=== PATIENT | male | born 1955 | race Caucasian/White ===

== ENCOUNTER 2016-10-10 00:27 | Emergency (ER) | payer SELFPAY ==
--- NOTE | 2016-10-10 02:06 | ER Document Report ---
ED General - General Mode of Arrival: Medic Information source: Patient TRAVEL OUTSIDE OF THE [place] IN LAST 30 DAYS: No - HPI Onset: Other - x3 days Onset/Duration: Persistent Quality of pain: Sharp Associated symptoms: Productive cough <ARIE CORTEZ - Last Filed: 10/10/16 02:17> <ALICIA MARIE - Last Filed: 10/10/16 03:38> - General Chief Complaint: Rib Pain Stated Complaint: RIB PAIN Notes: Patient is a 61-year-old male that presents to the emergency department today with complaints of left lateral chest wall pain. Patient states three days ago he fell and hit the left side of his chest. Patient states he has had pain since the fall however today he had a cough and he heard a pop in this area and his pain has been much worse since. Patient states he has had clear sputum with his cough which is chronic secondary to his COPD and continued smoking. Patient denies any fevers, loss of consciousness, or hitting his head during the fall. (ARIE CORTEZ) - Related Data Allergies/Adverse Reactions: iodine [Iodine] Allergy (Verified 10/08/11 08:05) Penicillins Allergy (Verified 10/08/11 08:04) Past Medical History - General Information source: Patient - Social History Smoking Status: Current Every Day Smoker Cigarette use (# per day): Yes Frequency of alcohol use: None Drug Abuse: None Lives with: Spouse/Significant other Family History: Reviewed & Not Pertinent - Past Medical History Cardiac Medical History: Reports: Hx Hypertension Pulmonary Medical History: Reports: Hx COPD Past Surgical History: Reports: Hx Bowel Surgery - colon resection - Immunizations Hx Diphtheria, Pertussis, Tetanus Vaccination: Yes <ARIE CORTEZ - Last Filed: 10/10/16 02:17> Review of Systems - Review of Systems Constitutional: denies: Fever EENT: No symptoms reported Cardiovascular: No symptoms reported Respiratory: See HPI, Cough, Other - left lateral chest wall pain Gastrointestinal: No symptoms reported Genitourinary: No symptoms reported Male Genitourinary: No symptoms reported Musculoskeletal: No symptoms reported Skin: No symptoms reported Hematologic/Lymphatic: No symptoms reported Neurological/Psychological: denies: Lost consciousness -: Yes All other systems reviewed and negative <ARIE CORTEZ - Last Filed: 10/10/16 02:17> Physical Exam - General General appearance: Appears well, Alert In distress: None - HEENT Head: Normocephalic, Atraumatic Eyes: Normal Conjunctiva: Normal - Respiratory Respiratory status: No respiratory distress Chest status: Nontender Breath sounds: Normal Chest palpation: Tender - over left lateral chest with ecchymosis - Cardiovascular Rhythm: Regular Heart sounds: Normal auscultation Murmur: No - Abdominal Inspection: Normal Distension: No distension - Extremities General upper extremity: Normal inspection, Normal ROM. No: Edema General lower extremity: Normal inspection, Normal ROM. No: Edema - Neurological Neuro grossly intact: Yes Cognition: Normal Orientation: AAOx4 Speech: Normal - Psychological Associated symptoms: Normal affect, Normal mood - Skin Skin Temperature: Warm Skin Moisture: Dry Skin Color: Normal <ARIE CORTEZ - Last Filed: 10/10/16 02:17> Course - Laboratory Result Diagrams: 10/10/16 00:45 <ARIE CORTEZ - Last Filed: 10/10/16 02:17> - Laboratory Result Diagrams: 10/10/16 00:45 - Diagnostic Test Radiology reviewed: Image reviewed - No acute findings., Reports reviewed <ALICIA MARIE - Last Filed: 10/10/16 03:38> - Re-evaluation Re-evalutation: 10/10/16 02:09 Patient presents 3 days status post blunt chest trauma from falling onto coffee table. Now complaining of increased pleuritic left lower rib pain with increased shortness of breath cough productive of clear sputum. Patient is afebrile and nontoxic appearing. He is not in respiratory distress. He does have clear breath sounds bilaterally with good air excursion. There is a area of ecchymosis left lateral lower rib cage with tenderness on palpation. We'll give a DuoNeb and check chest x-ray and treat pain with Toradol. (ALICIA MARIE ) - Vital Signs Vital signs: Temp Pulse Resp BP Pulse Ox 98.9 F 21 H 140/85 H 96 10/10/16 00:45 10/10/16 00:45 10/10/16 00:45 10/10/16 00:45 - EKG Interpretation by Me Additional EKG results interpreted by me: 10/10/16 02:11 Heart rate 94, normal sinus rhythm, normal axis, normal intervals, no ST elevations, as interpreted by me. No old for comparison. (ALICIA MARIE) Discharge <ARIE CORTEZ - Last Filed: 10/10/16 02:17> <ALICIA MARIE - Last Filed: 10/10/16 03:38> - Discharge Clinical Impression: COPD exacerbation, Pleuritic chest pain Chest wall contusion Qualifiers: Encounter type: initial encounter Laterality: left Qualified Code(s): S20.212A - Contusion of left front wall of thorax, initial encounter Condition: Stable Disposition: HOME, SELF-CARE Instructions: Rib Contusion ([facility]), Chronic Obstructive Lung Disease ([facility]) Additional Instructions: Use albuterol nebs as needed every 4-6 hours for wheezing/difficult to breathing. Take prednisone as prescribed for the next 5 days. Use incentive spirometer regularly throughout the day to encourage deep breathing. You can use Motrin and/or Tylenol for discomfort. Follow-up with your primary physician. Return for fevers, vomiting so not to keep down fluids, worsening difficulty breathing, or other worsening or concerning symptoms. Chest Wall Pain Your chest pain has been diagnosed as coming from the chest wall. This is often caused by straining the muscles or joints in the chest during physical activity, direct trauma, coughing, or vigorous vomiting. Persons with arthritis are especially prone to this type of pain, due to inflammation of the cartilage joints near the breast bone. Occasionally, no cause can be found. Rest from strenuous physical activity. This kind of chest pain is usually made worse by movement of the chest. Depending on the symptoms, we may prescribe medicine for pain, muscle relaxation, and antiinflammatory effects. If the pain is new, and seems to be due to muscle strain, cold packs can help. Otherwise, apply gentle warmth to the painful area for 15 minutes every hour or two. You should contact the doctor immediately if things change. Further evaluation is needed if you develop a fever or cough, if the nature of the pain changes, or if you become short of breath. Prescriptions: Albuterol Sulfate [Ventolin 0.083% Neb 2.5 mg/3 ml Ampul] 1 vial NEB Q4 PRN # 120 vial NS PRN Reason: For Wheezing Prednisone 50 mg PO DAILY #5 tablet Scribe Attestation: 10/10/16 03:38 I personally performed the services described in the documentation, reviewed and edited the documentation which was dictated to the scribe in my presence, and it accurately records my words and actions. (ALICIA MARIE) Scribe Documentation - Scribe Written by Scribe:: Freda Prado, 10/10/2016 0223 acting as scribe for :: Marion <ARIE CORTEZ - Last Filed: 10/10/16 02:17>
[2016-10-10] MEDS ORDERED: KETOROLAC TROMETHAMINE INJ/PF 30 MG/1 ML SDV IV ONE (02:07)
[2016-10-10] MEDS ORDERED: IPRATROPIUM/ALBUTEROL 0.5-2.5 MG/3 ML AMPUL NEB ONE (02:09)
[2016-10-10 02:13] LABS: ABSOLUTE BASOPHILS # (AUTO) 0.1 10^3/uL (0.0-0.2); ABSOLUTE EOSINOPHILS # (AUTO) 0.1 10^3/uL (0.0-0.6); ABSOLUTE LYMPHOCYTES (AUTO) 1.8 10^3/uL (0.5-4.7); ABSOLUTE MONOCYTES (AUTO) 0.8 10^3/uL (0.1-1.4); BASOPHILS % (AUTO) 1.1 % (0-2); EOSINOPHILS % (AUTO) 1.3 % (0-6); HEMATOCRIT 48.6 % (37.9-51.0); HEMOGLOBIN 16.4 g/dL (13.5-17.0); HGB HCT DIFFERENCE 0.6; LYMPHOCYTES % (AUTO) 23.1 % (13-45); MEAN CORPUSCULAR HEMOGLOBIN 31.4 pg (27.0-33.4); MEAN CORPUSCULAR HGB CONC 33.9 g/dL (32.0-36.0); MEAN CORPUSCULAR VOLUME 93 fl (80-97); MONOCYTES % (AUTO) 10.5 % (3-13); RED BLOOD COUNT 5.23 10^6/uL (4.35-5.55); WHITE BLOOD COUNT 7.8 10^3/uL (4.0-10.5)
[2016-10-10 03:45] VITALS: BP 132/85
--- NOTE | 2016-10-10 05:39 | EKG REPORT ---
SEVERITY:- NORMAL ECG - SINUS RHYTHM : Confirmed by: Geni Thacker MD 10-Oct-2016 05:39:20
== END 2016-10-10 03:30 | disposition home or self-care (01) ==
LOC: ER 00:27
DX: S20.212A Contusion of left front wall of thorax, initial encounter (principal); W19.XXXA Unspecified fall, initial encounter; J44.1 Chronic obstructive pulmonary disease with (acute) exacerbation; R07.81 Pleurodynia; R05 Cough; R06.02 Shortness of breath; I10 Essential (primary) hypertension; F17.210 Nicotine dependence, cigarettes, uncomplicated; Z88.0 Allergy status to penicillin
CPT/HCPCS: 93005; 94640; 99284; 96374; 36415; 85025; 71020; 93010; J1885; J7620

== ENCOUNTER 2016-12-19 01:17 | Observation (INO) | payer MEDICAID ==
[2016-12-19] MEDS ORDERED: NORMAL SALINE 1000 ML 1,000 ML IV ONE ×3 (01:26→04:24)
--- NOTE | 2016-12-19 01:29 | ER Document Report ---
ED General - General Chief Complaint: Syncope Stated Complaint: POSSIBLE SYNCOPE EPISODE Time Seen by Provider: 12/19/16 01:26 Notes: Patient is a 61-year-old male who presents with complaint of a syncopal episode. Patient apparently was walking to the bathroom and family heard him hit the floor. When they arrived he was not breathing and he was pale. They eventually were able to get him to sit on the toilet He then passed out again while the toilet. When paramedics arrived he was poorly responsive his blood pressure was 77/56. They said it appeared that he was in atrial flutter. Since the fall the patient has had a tremor in his right upper extremity. Patient is a chronic alcoholic. says that he has strength today. She does not suspect withdrawal she has been drinking regularly. He has had no recent fevers or infections. No other complaints at this time. He only takes Lisinopril 20mg daily. Patient received 250 mL's of normal saline in the ambulance. Blood pressure did improve with that. Patient does not remember the event. He denies any chest pain. He denies headache. TRAVEL OUTSIDE OF THE [place] IN LAST 30 DAYS: No - Related Data Allergies/Adverse Reactions: iodine [Iodine] Allergy (Verified 12/19/16 02:18) Penicillins Allergy (Verified 12/19/16 02:18) Past Medical History - Social History Smoking Status: Unknown if Ever Smoked Frequency of alcohol use: Heavy Drug Abuse: None Family History: Reviewed & Not Pertinent - Past Medical History Cardiac Medical History: Reports: Hx Hypertension Pulmonary Medical History: Reports: Hx COPD Past Surgical History: Reports: Hx Bowel Surgery - colon resection - Immunizations Hx Diphtheria, Pertussis, Tetanus Vaccination: Yes Review of Systems - Review of Systems Notes: My Normal Review Basic REVIEW OF SYSTEMS: CONSTITUTIONAL : Denies fever, chills, or sweats. Denies recent illness. EENT: Denies eye, ear, throat, or mouth pain or symptoms. Denies nasal or sinus congestion. CARDIOVASCULAR: Denies chest pain. RESPIRATORY: Denies cough, cold, or chest congestion. Denies shortness of breath, difficulty breathing, or wheezing. GASTROINTESTINAL: Denies abdominal pain. Denies nausea, vomiting, or diarrhea. Denies constipation. Last BM: GENITOURINARY: Denies difficulty urinating, painful urination, burning, frequency, or blood in urine. MUSCULOSKELETAL: Left foot pain. SKIN: Denies rash or skin lesions. NEUROLOGICAL: Syncope denies headache. Denies weakness or paralysis or loss of use of either side. Denies problems with gait or speech. Denies sensory or motor loss. Tremor and right upper extremity. ALL OTHER SYSTEMS REVIEWED AND NEGATIVE. Physical Exam - Vital signs Vitals: Resp Pulse Ox 22 H 95 12/19/16 01:24 12/19/16 01:24 - Notes Notes: General Appearance: Well nourished, alert, cooperative but somewhat confused, no acute distress, no obvious discomfort. Vitals: reviewed, See vital signs table. Head: no swelling or tenderness to the head Eyes: PERRL, EOMI, Conjuctiva clear Mouth: No decreasd moisture Throat: No tonsillar inflammation, No airway obstruction, No lymphadenopathy Neck: Supple, no neck tenderness, No thyromegaly Lungs: No wheezing, No rales, No rhonci, No accessory muscle use, good air exchange bilaterally. Heart: Normal rate, Regular rythm, No murmur, no rub Abdomen: Normal BS, soft, No rigidity, No abdominal tenderness, No guarding, no rebound, no abdominal masses, no organomegaly Extremities: strength 5/5 in all extremities, good pulses in all extremities, no swelling or tenderness in the extremities, no edema. Skin: warm, dry, appropriate color, no rash Neuro: speech clear, oriented x 2, normal affect, responds appropriately to most questions. Patient does have some amnesia and keeps asking where he is and what happened. Patient is able to move all extremities without difficulty however he does have a tremor in the right upper extremity that he has difficulty controlling. He is still able to move his right upper extremity voluntarily without problems. Cranial nerves II through XII are intact. Distal sensation is intact. Gait is not yet tested. Course - Re-evaluation Re-evalutation: 12/19/16 03:24 Patient's blood pressure was doing better and his feeling improved. Now patient 's blood pressure started to drop again. His blood pressures in the 70s systolic. We did repeat it is still in the 70s systolic. Patient himself says he is feeling better and has no complaints of pain. His laboratory evaluation is unremarkable. I do not know the exact cause of his syncopal episodes recur hypertension at this time. Being that he did have the syncope and has recurrent hypotension I will do a CTA of his chest to rule out potential etiologies of his syncope. - Vital Signs Vital signs: Temp Pulse Resp BP Pulse Ox 97.5 F 101 H 15 119/75 98 12/19/16 01:25 12/19/16 03:35 12/19/16 04:55 12/19/16 04:55 12/19/16 04:55 - Laboratory Result Diagrams: 12/19/16 01:25 12/19/16 01:25 Laboratory results interpreted by me: 12/19/16 12/19/16 12/19/16 01:25 01:25 04:13 Lymphocytes % 46.7 H Sodium 133.3 L Chloride 94 L Creatinine 1.52 H Est GFR ( Amer) 57 L Est GFR (Non-Af Amer) 47 L Urine Protein 100 H - EKG Interpretation by Me Additional EKG results interpreted by me: 12/19/16 01:28 EKG is reviewed and interpreted by me. EKG shows normal sinus rhythm with a rate of [address] segment elevation or depression. No ischemic T-wave inversions. There is a lot of artifact in lead V1 making it difficult to interpret. [place] interval, QTc intervals are within normal range. QRS duration is slightly prolonged. No old EKG available for comparison. - Transfer of Care Notes: 12/19/16 05:00 The exact cause of patient's syncope is probably recurrent hypotension. Because of the hypotension is really not clear. He does respond well to fluids. Said no fevers. He has no signs of infection on the workup. CT is negative for PE or dissection. Cardiac enzymes are negative. CT scan of his head is negative. He is not in any alcohol withdrawal. His electrolytes are normal. I see no arrhythmia on the EKG. hospitalist who agrees with the patient for continued workup of his intermittent hypotension and syncope. Dictation of this chart was performed using voice recognition software; therefore, there may be some unintended grammatical errors. Discharge - Discharge Clinical Impression: Syncope Qualifiers: Syncope type: unspecified Qualified Code(s): R55 - Syncope and collapse Hypotension Qualifiers: Hypotension type: unspecified hypotension type Qualified Code(s): I95.9 - Hypotension, unspecified Admitting Provider: Hospitalist Unit Admitted: [facility]
[2016-12-19] MEDS ORDERED: FOLIC ACID INJ 5 MG/1 ML 10 ML VIAL IV ONE (01:30)
[2016-12-19] MEDS ORDERED: LORAZEPAM INJ 2 MG/1 ML VIAL IV ONE (01:30)
[2016-12-19] MEDS ORDERED: THIAMINE HCL 100 MG in NORMAL SALINE 50 ML IV ONE (01:30)
[2016-12-19 01:46] LABS: ABSOLUTE BASOPHILS # (AUTO) 0.1 10^3/uL (0.0-0.2); ABSOLUTE EOSINOPHILS # (AUTO) 0.2 10^3/uL (0.0-0.6); ABSOLUTE LYMPHOCYTES (AUTO) 3.8 10^3/uL (0.5-4.7); ABSOLUTE MONOCYTES (AUTO) 0.6 10^3/uL (0.1-1.4); ABSOLUTE NEUT (AUTO) 3.5 10^3/uL (1.7-8.2); BASOPHILS % (AUTO) 1.2 % (0-2); EOSINOPHILS % (AUTO) 2.2 % (0-6); HEMATOCRIT 44.6 % (37.9-51.0); HEMOGLOBIN 15.2 g/dL (13.5-17.0); LYMPHOCYTES % (AUTO) 46.7 % (13-45); MEAN CORPUSCULAR HEMOGLOBIN 31.9 pg (27.0-33.4); MEAN CORPUSCULAR HGB CONC 34.1 g/dL (32.0-36.0); MEAN CORPUSCULAR VOLUME 94 fl (80-97); MONOCYTES % (AUTO) 6.9 % (3-13); RED BLOOD COUNT 4.76 10^6/uL (4.35-5.55); RED CELL DISTRIBUTION WIDTH 13.9 % (11.5-14.0); WHITE BLOOD COUNT 8.2 10^3/uL (4.0-10.5)
[2016-12-19 02:01] LABS: ALANINE AMINOTRANSFERASE 37 U/L (21-72); ALBUMIN 4.2 g/dL (3.5-5.0); ALCOHOL 219 mg/dL (NONE DETECTED); ALKALINE PHOSPHATASE 73 U/L (38-126); ANION GAP 15 (5-19); ASPARTATE AMINO TRANSFERASE 24 U/L (17-59); BILIRUBIN,DIRECT 0.4 mg/dL (0.0-0.4); BILIRUBIN,TOTAL 0.6 mg/dL (0.2-1.3); BLOOD UREA NITROGEN 12 mg/dL (7-20); CALCIUM 9.4 mg/dL (8.4-10.2); CARBON DIOXIDE 24 mmol/L (22-30); CHLORIDE 94 mmol/L (98-107); CREATINE KINASE 125 U/L (55-170); CREATININE RESULT 1.52 mg/dL (0.52-1.25); GLUCOSE 102 mg/dL (75-110); MAGNESIUM 2.3 mg/dL (1.6-2.3); PROTHROMBIN TIME 12.8 SEC (11.4-15.4); SODIUM 133.3 mmol/L (137-145); TOTAL PROTEIN 6.7 g/dL (6.3-8.2)
[2016-12-19 02:13] LABS: CREATINE KINASE MB 1.51 ng/mL (<4.55)
[2016-12-19 02:19] LABS: TROPONIN I < 0.012 ng/mL
[2016-12-19] MEDS ORDERED: THIAMINE HCL INJ 200 MG/2 ML VIAL ONE (03:00)
--- NOTE | 2016-12-19 03:10 | RADIOLOGY REPORT (SQ) ---
EXAM DESCRIPTION: CT CERVICAL SPINE WITHOUT COMPLETED DATE/TIME: 12/19/2016 2:43 am REASON FOR STUDY: trauma COMPARISON: None. TECHNIQUE: Axial images acquired through the cervical spine without intravenous contrast. Images re viewed with lung, soft tissue and bone windows. Reconstructed coronal and sagittal MPR images review ed. Images stored on PACS. All CT scanners at this facility use dose modulation, iterative reconstruction, and/or weight based d osing when appropriate to reduce radiation dose to as low as reasonably achievable (ALARA). [facility]: Dose Right [facility]: CareDose [facility]: Dose Right [facility]: Teradose 4D [facility]: [employer] RADIATION DOSE: 10.74 mGy. LIMITATIONS: None. FINDINGS: ALIGNMENT: Anatomic. MINERALIZATION: Normal. VERTEBRAL BODIES: No fractures or dislocation. DISCS: Moderate C6-C7 disc bulge -osteophyte complex and moderate spondylosis result in [id number] ate spinal canal stenosis and moderate bilateral C7 foraminal stenoses. Small C4-C5 disc bulge. Mod erate fragmented disc desiccation and osteophyte at the C1-C2 level with mild -moderate left C2 karina inal stenosis. FACETS, LATERAL MASSES, POSTERIOR ELEMENTS: No fractures. No dislocation. No acute findings. HARDWARE: None in the spine. VISUALIZED RIBS: No fractures. LUNG APICES AND SOFT TISSUES: No significant or acute findings. OTHER: Atherosclerosis. IMPRESSION: No acute findings. Moderate disc desiccation spondylosis at the C6-C7- and C1-C2 levels . TECHNICAL DOCUMENTATION: JOB ID: [id number] Quality ID # [id number]: Final reports with documentation of one or more dose reduction techniques (e.g., Au tomated exposure control, adjustment of the mA and/or kV according to patient size, use of iterative reconstruction technique) 2010 [[employer]- All Rights Reserved
--- NOTE | 2016-12-19 03:12 | RADIOLOGY REPORT (SQ) ---
EXAM DESCRIPTION: CT HEAD WITHOUT COMPLETED DATE/TIME: 12/19/2016 2:44 am REASON FOR STUDY: trauma COMPARISON: 05/15/2010. TECHNIQUE: Axial images acquired through the brain without intravenous contrast. Images reviewed wi th bone, brain and subdural windows. Images stored on PACS. All CT scanners at this facility use dose modulation, iterative reconstruction, and/or weight based d osing when appropriate to reduce radiation dose to as low as reasonably achievable (ALARA). [facility]: Dose Right [facility]: CareDose [facility]: Dose Right [facility]: Teradose 4D [facility]: [employer] RADIATION DOSE: 55.22 mGy. LIMITATIONS: None. FINDINGS: VENTRICLES: Normal size and contour. CEREBRUM: No masses. No hemorrhage. No midline shift. Normal bourgeois/white matter differentiation. N o evidence for acute infarction. Mild cerebral volume loss. CEREBELLUM: No masses. No hemorrhage. No alteration of density. No evidence for acute infarction. EXTRAAXIAL SPACES: No fluid collections. No masses. ORBITS AND GLOBE: No intra- or extraconal masses. Normal contour of globe without masses. CALVARIUM: No fracture. PARANASAL SINUSES: No fluid or mucosal thickening. SOFT TISSUES: No mass or hematoma. OTHER: No other significant finding. IMPRESSION: No acute findings. TECHNICAL DOCUMENTATION: JOB ID: [id number] Quality ID # [id number]: Final reports with documentation of one or more dose reduction techniques (e.g., Au tomated exposure control, adjustment of the mA and/or kV according to patient size, use of iterative reconstruction technique) 2010 [employer]- All Rights Reserved
--- NOTE | 2016-12-19 03:18 | RADIOLOGY REPORT (SQ) ---
EXAM DESCRIPTION: FOOT LEFT COMPLETE COMPLETED DATE/TIME: 12/19/2016 3:08 am REASON FOR STUDY: trauma COMPARISON: None. NUMBER OF VIEWS: Three views. TECHNIQUE: AP, lateral and oblique radiographic images acquired of the left foot. LIMITATIONS: None. FINDINGS: MINERALIZATION: Osteopenia. BONES: Comminuted oblique fractures of the distal diametaphysis of the left 2nd, 3rd, and 4th metatar si. small calcaneal enthesophytes. JOINTS: No effusions. SOFT TISSUES: No soft tissue swelling. No foreign body. OTHER: No other significant finding. IMPRESSION: Left 2nd, 3rd, and 4th distal metatarsal fractures. TECHNICAL DOCUMENTATION: JOB ID: [id number] 1891 [email or web address]- All Rights Reserved
--- NOTE | 2016-12-19 03:19 | RADIOLOGY REPORT (SQ) ---
EXAM DESCRIPTION: PELVIS AP COMPLETED DATE/TIME: 12/19/2016 3:08 am REASON FOR STUDY: trauma COMPARISON: None. NUMBER OF VIEWS: One view TECHNIQUE: AP Pelvis LIMITATIONS: None. FINDINGS: MINERALIZATION: Normal. HIPS: No acute fracture or dislocation. No worrisome bone lesions. PELVIS AND SACRUM: No acute fracture or dislocation. No worrisome bone lesions. PUBIS AND ISCHIUM: No acute fracture. LOWER LUMBAR SPINE: Moderate disc desiccation. Mild right sacroiliac osteoarthritis. SOFT TISSUES: No findings. OTHER: No other significant finding. IMPRESSION: No acute defect. TECHNICAL DOCUMENTATION: JOB ID: [id number] [employer]- All Rights Reserved
--- NOTE | 2016-12-19 03:22 | RADIOLOGY REPORT (SQ) ---
EXAM DESCRIPTION: ANKLE LEFT COMPLETE COMPLETED DATE/TIME: 12/19/2016 3:08 am REASON FOR STUDY: trauma COMPARISON: CR, left foot, concurrent. NUMBER OF VIEWS: Three views. TECHNIQUE: AP, lateral, and oblique radiographic images acquired of the left ankle. LIMITATIONS: None. FINDINGS: MINERALIZATION: Osteopenia. BONES: Left 2nd, 3rd, and 4th metatarsal fractures described in a separate report for the left foot. Moderate deformity of the left distal tibial shaft consistent with old injury. Small osteophyte of the medial malleolus. Small enthesophytes of the calcaneus. JOINTS: No effusions. SOFT TISSUES: No soft tissue swelling. No foreign body. OTHER: No other significant finding. IMPRESSION: Left 2nd, 3rd, and 4th metatarsal fractures. No acute defect of the left ankle. TECHNICAL DOCUMENTATION: JOB ID: [id number] [employer]- All Rights Reserved
--- NOTE | 2016-12-19 03:25 | RADIOLOGY REPORT (SQ) ---
EXAM DESCRIPTION: CHEST SINGLE VIEW COMPLETED DATE/TIME: 12/19/2016 3:08 am REASON FOR STUDY: syncope COMPARISON: None. EXAM PARAMETERS: NUMBER OF VIEWS: One view. TECHNIQUE: Single frontal radiographic view of the chest acquired. RADIATION DOSE: NA LIMITATIONS: Arm positioning artifact overlies the right lower hemithorax. FINDINGS: LUNGS AND PLEURA: No opacities, masses or pneumothorax. No pleural effusion. MEDIASTINUM AND HILAR STRUCTURES: No masses. Contour normal. HEART AND VASCULAR STRUCTURES: Heart normal in size. Normal vasculature. BONES: No acute findings. HARDWARE: None in the chest. OTHER: No other significant finding. IMPRESSION: NO ACUTE RADIOGRAPHIC FINDING IN THE CHEST. Limitation. TECHNICAL DOCUMENTATION: JOB ID: [id number]
--- NOTE | 2016-12-19 04:38 | RADIOLOGY REPORT (SQ) ---
EXAM DESCRIPTION: CTA CHEST COMPLETED DATE/TIME: 12/19/2016 4:15 am REASON FOR STUDY: syncope, hypotension COMPARISON: None. TECHNIQUE: CT scan of the chest performed using helical scanning technique with dynamic intravenous contrast injection. Images reviewed with lung, soft tissue and bone windows. Reconstructed coronal and sagittal MPR images reviewed. Additional 3 dimensional post-processing performed to develop Maximal Intensity Projection images (AR P). All images stored on PACS. All CT scanners at this facility use dose modulation, iterative reconstruction, and/or weight based d osing when appropriate to reduce radiation dose to as low as reasonably achievable (ALARA). [facility]: Dose Right [facility]: CareDose [facility]: Dose Right [facility]: Teradose 4D [facility]: [employer] CONTRAST TYPE AND DOSE: 100 mL Isovue 370- low osmolar. RENAL FUNCTION: Creatinine 1.5 RADIATION DOSE: 17.34 mGy. LIMITATIONS: None. FINDINGS: LUNGS AND PLEURA: No masses, infiltrates, pneumothorax. No pleural effusions, calcificati ons. AORTA AND GREAT VESSELS: No aneurysm or dissection. HEART: No pericardial effusion. PULMONARY ARTERIES: No emboli visualized in the main pulmonary arteries or the segmental branches. HILAR AND MEDIASTINAL STRUCTURES: No identified masses or abnormal nodes. HARDWARE: None in the chest. UPPER ABDOMEN: Mild bilateral perinephric fat stranding. Mild hepatic steatosis. Limited exam. THYROID AND OTHER SOFT TISSUES: No masses. No adenopathy. BONES: Chronic deformity of multiple left posterior ribs from the 2nd to 7th levels likely due to old injury. 3D MIPS: Confirm above findings. OTHER: No other significant finding. IMPRESSION: No acute cardiopulmonary findings. NO PULMONARY EMBOLI. TECHNICAL DOCUMENTATION: JOB ID: [id number] Quality ID # [id number]: Final reports with documentation of one or more dose reduction techniques (e.g., Au tomated exposure control, adjustment of the mA and/or kV according to patient size, use of iterative reconstruction technique) 2010 [employer]- All Rights Reserved
[2016-12-19 04:52] LABS: APPEARANCE,URINE SLIGHTLY-CLOUDY; BILIRUBIN,URINE NEGATIVE (NEGATIVE); GLUCOSE, URINE NEGATIVE (NEGATIVE); KETONES,URINE NEGATIVE (NEGATIVE); LEUKOCYTE ESTERASE,URINE NEGATIVE (NEGATIVE); NITRITE,URINE NEGATIVE (NEGATIVE); PROTEIN,URINE 100 mg/dL (NEGATIVE); URINE BARBITURATES SCREEN NEGATIVE; URINE METHADONE SCREEN NEGATIVE; URINE OPIATES LOW UNCONFIRMED POSITIVE; URINE PHENCYCLIDINE SCREEN NEGATIVE; URINE SPECIFIC GRAVITY 1.011; UROBILINOGEN,URINE NEGATIVE mg/dL (<2.0)
[2016-12-19] MEDS ORDERED: NALOXONE HCL INJ/PF 0.4 MG/1 ML SDV IV ONE (05:00)
[2016-12-19] MEDS ORDERED: ACETAMINOPHEN 325 MG TABLET PO PRN (06:29)
[2016-12-19] MEDS ORDERED: LORAZEPAM INJ 2 MG/1 ML VIAL IV PRN (06:29)
[2016-12-19] MEDS ORDERED: KETOROLAC TROMETHAMINE INJ/PF 30 MG/1 ML SDV IV PRN (06:29)
[2016-12-19] MEDS ORDERED: IPRATROPIUM/ALBUTEROL 0.5-2.5 MG/3 ML AMPUL NEB PRN (06:29)
[2016-12-19] MEDS ORDERED: NORMAL SALINE 1000 ML 1,000 ML IV SCH (06:30)
--- NOTE | 2016-12-19 06:50 | PDOC H&P ---
History of Present Illness Admission Date/PCP: 12/19/16 05:04 Patient complains of: Fall and left foot pain History of Present Illness: YOSSI RASMUSSEN is a 61 year old male with a past medical history of hypertension, tobacco and alcohol abuse who had been in his usual state of health until approximately 2 hours prior to presentation. Patient had had a unremarkable day consuming approximately a case of beer 5 or 6 shots of alcohol, marijuana and Percocet and went to bed however on attempt to use the bathroom he fell resulting in injury to his left foot. he was helped to a chair by his where he briefly lost consciousness and fell to the floor prompting evaluation in the emergency room where he was found intoxicated with hypotension and closed fracture to the left foot and referred to the hospitalist for admission. Patient is verbally abusive to his and hospital staff. Unwilling to provide history which is provided by his outside his room. Patient denies suicidal ideation. He is unwilling to quantify his alcohol intake. His admits previous history of syncope remotely associated with with alcohol use. Past Medical History Cardiac Medical History: Reports: Hypertension Pulmonary Medical History: Reports: Chronic Obstructive Pulmonary Disease (COPD) Psychiatric Medical History: Reports: Alcohol Dependency, Tobacco Dependency, Other - Cannabis and Percocet abuse Social History Information Source: Patient, Relative, Emergency Med Personnel, [facility], [facility] Records Lives with: Family Smoking Status: Unknown if Ever Smoked Frequency of Alcohol Use: Heavy Amount of Alcoholic Beverages Per Day: 24+ Hx Recreational Drug Use: Yes Drugs: Marijuana Hx Prescription Drug Abuse: Yes - Percocet - Advance Directive Resuscitation Status: Full Code Family History Family History: Hypertension. denies: Malignancy Parental Family History Reviewed: Yes Children Family History Reviewed: Yes Sibling(s) Family History Reviewed.: Yes Medication/Allergy Home Medications: Lisinopril 30 mg PO DAILY 10/08/11 Albuterol Sulfate [Ventolin 0.083% Neb 2.5 mg/3 ml Ampul] 1 vial NEB Q4 PRN # 120 vial NS 10/10/16 Prednisone 50 mg PO DAILY #5 tablet 10/10/16 Allergies/Adverse Reactions: iodine [Iodine] Allergy (Verified 12/19/16 02:18) Penicillins Allergy (Verified 12/19/16 02:18) Review of Systems Constitutional: ABSENT: chills, fever(s), headache(s), weight gain, weight loss Eyes: ABSENT: visual disturbances Ears: ABSENT: hearing changes Cardiovascular: ABSENT: chest pain, dyspnea on exertion, edema, orthropnea, palpitations Respiratory: ABSENT: cough, hemoptysis Gastrointestinal: ABSENT: abdominal pain, constipation, diarrhea, hematemesis, hematochezia, nausea, vomiting Genitourinary: ABSENT: dysuria, hematuria Musculoskeletal: ABSENT: joint swelling Integumentary: ABSENT: rash, wounds Neurological: ABSENT: abnormal gait, abnormal speech, confusion, dizziness, focal weakness, syncope Psychiatric: ABSENT: anxiety, depression, homidical ideation, suicidal ideation Endocrine: ABSENT: cold intolerance, heat intolerance, polydipsia, polyuria Hematologic/Lymphatic: ABSENT: easy bleeding, easy bruising Physical Exam Vital Signs: Temp Pulse Resp BP Pulse Ox 98.5 F 102 H 16 107/75 94 12/19/16 06:00 12/19/16 06:00 12/19/16 06:01 12/19/16 06:01 12/19/16 06:01 General appearance: PRESENT: no acute distress, well-developed, well-nourished. ABSENT: cooperative Head exam: PRESENT: atraumatic, normocephalic Eye exam: PRESENT: conjunctiva pink, EOMI, PERRLA. ABSENT: scleral icterus Ear exam: PRESENT: normal external ear exam Mouth exam: PRESENT: moist, tongue midline Neck exam: ABSENT: carotid bruit, JVD, lymphadenopathy, thyromegaly Respiratory exam: PRESENT: clear to auscultation emelina. ABSENT: rales, rhonchi, wheezes Cardiovascular exam: PRESENT: RRR. ABSENT: diastolic murmur, rubs, systolic murmur Pulses: PRESENT: normal dorsalis pedis pul Vascular exam: PRESENT: normal capillary refill GI/Abdominal exam: PRESENT: normal bowel sounds, soft. ABSENT: distended, guarding, mass, organolmegaly, rebound, tenderness Rectal exam: PRESENT: deferred Extremities exam: PRESENT: full ROM, tenderness - Left foot immobilized and splinted. ABSENT: calf tenderness, clubbing, pedal edema Neurological exam: PRESENT: alert, awake, oriented to person, oriented to place , oriented to time, oriented to situation, CN II-XII grossly intact. ABSENT: motor sensory deficit Psychiatric exam: PRESENT: appropriate affect, normal mood. ABSENT: homicidal ideation, suicidal ideation Skin exam: PRESENT: dry, intact, warm. ABSENT: cyanosis, rash Results Impressions: Ankle X-Ray 12/19/16 01:27 IMPRESSION: Left 2nd, 3rd, and 4th metatarsal fractures. No acute defect of the left ankle. Cervical Spine CT 12/19/16 01:27 IMPRESSION: No acute findings. Moderate disc desiccation spondylosis at the C6 -C7- and C1-C2 levels. Foot X-Ray 12/19/16 01:27 IMPRESSION: Left 2nd, 3rd, and 4th distal metatarsal fractures. Head CT 12/19/16 01:27 IMPRESSION: No acute findings. Pelvis X-Ray 12/19/16 01:27 IMPRESSION: No acute defect. Chest X-Ray 12/19/16 02:49 IMPRESSION: NO ACUTE RADIOGRAPHIC FINDING IN THE CHEST. Limitation. Chest/Abdomen CTA 12/19/16 03:19 IMPRESSION: No acute cardiopulmonary findings. NO PULMONARY EMBOLI. Assessment & Plan - Diagnosis (1) Hypotension Qualifiers: Hypotension type: unspecified hypotension type Qualified Code(s): I95.9 - Hypotension, unspecified Is this a current diagnosis for this admission?: YesPlan: Likely secondary to polysubstance abuse and intoxication. He will receive an IV fluid challenge, a trial of Narcan and orthostatic blood pressures. (2) Intoxication Is this a current diagnosis for this admission?: YesPlan: Supportive care with nonnarcotic symptom management (3) Polysubstance abuse Is this a current diagnosis for this admission?: YesPlan: Avoidance of opiates consider referral to outpatient rehab (4) Alcohol abuse Is this a current diagnosis for this admission?: YesPlan: Thiamine, folate, as needed Ativan consider referral to outpatient rehab. - Time Time Spent: 30 to 50 Minutes - Inpatient Certification Medical Necessity: Need Close Monitoring Due to Risk of Patient Decompensation
[2016-12-19] MEDS ORDERED: THIAMINE HCL 100 MG, FOLIC ACID 1 MG in NORMAL SALINE 50 ML IV SCH (10:00)
[2016-12-19] MEDS ORDERED: DOCUSATE SODIUM 100 MG CAPSULE PO SCH (10:00)
[2016-12-19] MEDS ORDERED: PREDNISONE 20 MG TABLET PO ONE (10:34)
[2016-12-19] MEDS: MAGNESIUM SULFATE/D5W 100 ML IV SCH ×2 (11:33→12:44)
[2016-12-19 13:03] LABS: ANION GAP 9 (5-19); BLOOD UREA NITROGEN 9 mg/dL (7-20); CALCIUM 8.6 mg/dL (8.4-10.2); CARBON DIOXIDE 20 mmol/L (22-30); CHLORIDE 102 mmol/L (98-107); CREATININE RESULT 0.94 mg/dL (0.52-1.25); GLUCOSE 98 mg/dL (75-110); POTASSIUM 4.8 mmol/L (3.6-5.0)
[2016-12-19] MEDS ORDERED: DIAZEPAM 5 MG TABLET PO ONE (13:30)
[2016-12-19] MEDS ORDERED: HEPARIN SOD (PORCINE) 5,000 UNIT/ML 1 ML SYRINGE SUBCUT SCH (14:00)
[2016-12-19 17:08] VITALS: BP 112/58
--- NOTE | 2016-12-19 20:40 | EKG REPORT ---
SEVERITY:- ABNORMAL ECG - SINUS RHYTHM BORDERLINE R WAVE PROGRESSION, ANTERIOR LEADS BORDERLINE T ABNORMALITIES, LAT LEADS : Confirmed by: Jai Garner MD 19-Dec-2016 20:39:26
--- NOTE | 2016-12-19 20:59 | PDOC DISCHARGE SUMMARY ---
General - Admit/Disc Date/PCP Admission Date/Primary Care Provider: 12/19/16 05:04 Discharge Date: 12/19/16 - Discharge Diagnosis (1) COPD exacerbation Is this a current diagnosis for this admission?: Yes (2) Fracture of metatarsal of left foot, closed Is this a current diagnosis for this admission?: Yes (3) Alcohol abuse Is this a current diagnosis for this admission?: Yes (4) Hypotension Is this a current diagnosis for this admission?: Yes (5) Polysubstance abuse Is this a current diagnosis for this admission?: Yes (6) Syncope Is this a current diagnosis for this admission?: Yes (7) Tobacco abuse Is this a current diagnosis for this admission?: Yes (8) Acute renal failure Is this a current diagnosis for this admission?: Yes - Additional Information Resuscitation Status: Full Code Discharge Diet: Cardiac Discharge Activity: Activity As Tolerated, Balance Activity w/Rest, Keep Legs Elevated Home Medications: Albuterol Sulfate [Ventolin Hfa] 1 - 2 puff IH Q4 PRN #1 hfa.aer.[id number] 12/19/16 Folic Acid [Folvite 1 mg Tablet] 1 mg PO DAILY #30 tablet 12/19/16 Lisinopril [Prinivil] 20 mg PO DAILY 12/19/16 Prednisone [Deltasone 20 mg Tablet] 20 mg PO DAILY #18 tablet 12/19/16 Thiamine HCl [Thiamine 100 mg Tablet] 100 mg PO DAILY #30 tablet 12/19/16 Tramadol HCl [Ultram 50 mg Tablet] 50 mg PO Q6HP PRN #20 tablet 12/19/16 History of Present Illness History of Present Illness: YOSSI RASMUSSEN is a 61 year old male with a past medical history of hypertension, tobacco and alcohol abuse who had been in his usual state of health until approximately 2 hours prior to presentation. Patient had had a unremarkable day consuming approximately a case of beer 5 or 6 shots of alcohol, marijuana and Percocet and went to bed however on attempt to use the bathroom he fell resulting in injury to his left foot. he was helped to a chair by his where he briefly lost consciousness and fell to the floor prompting evaluation in the emergency room where he was found intoxicated with hypotension and closed fracture to the left foot and referred to the hospitalist for admission. Patient is verbally abusive to his and hospital staff. Unwilling to provide history which is provided by his outside his room. Patient denies suicidal ideation. He is unwilling to quantify his alcohol intake. His admits previous history of syncope remotely associated with with alcohol use. Hospital Course Hospital Course: Patient was placed on observation and CTA was performed which was negative. Patient was found to have metatarsal fracture after his fall and this was splinted in the emergency department. Patient admitted to taking opiates and his hypotension improved with the administration of Narcan. Patient was also given IV fluids. Patient was found to have mild COPD exacerbation with slight wheezing and given oral prednisone. Cardiac enzymes were negative. Upon seeing patient he did request discharge. Patient most likely had syncopal episode due to polysubstance abuse and mild dehydration. Patient was advised to refrain from taking medications that were not prescribed to him, to stop smoking, to avoid alcohol, and follow with his primary care doctor. Patient is advised also to follow with orthopedic surgery. Appointment was made for him prior to discharge. Physical Exam Vital Signs: Temp Pulse Resp BP Pulse Ox 97.8 F 92 17 112/58 L 98 12/19/16 17:04 12/19/16 17:04 12/19/16 17:04 12/19/16 17:04 12/19/16 17:04 Exam: General: Awake alert and oriented x3, no acute respiratory distress HEENT: oropharynx is moist, pink, no scleral icterus, no conjunctival injection Neck: No JVD, trachea midline Chest: White end expiratory wheezes CV: Regular rate and rhythm, normal S1 and S2, no M/R/G Abdomen: Soft, nontender to palpation, nondistended, active bowel sounds; no rebound, rigidity, or guarding Extremities: No cyanosis, clubbing or edema; right leg in splint Neuro: Cranial nerves II through XII are grossly intact without focal deficits Psych: Normal mood and affect Results Laboratory Results: 12/19/16 11:37 12/19/16 12/19/16 06:44 11:37 Sodium 131.0 L Potassium 4.8 Chloride 102 Carbon Dioxide 20 L Anion Gap 9 BUN 9 Creatinine 0.94 Est GFR ( Amer) > 60 Est GFR (Non-Af Amer) > 60 Glucose 98 Calcium 8.6 Magnesium 1.8 Impressions: Ankle X-Ray 12/19/16 01:27 IMPRESSION: Left 2nd, 3rd, and 4th metatarsal fractures. No acute defect of the left ankle. Cervical Spine CT 12/19/16 01:27 IMPRESSION: No acute findings. Moderate disc desiccation spondylosis at the C6 -C7- and C1-C2 levels. Foot X-Ray 12/19/16 01:27 IMPRESSION: Left 2nd, 3rd, and 4th distal metatarsal fractures. Head CT 12/19/16 01:27 IMPRESSION: No acute findings. Pelvis X-Ray 12/19/16 01:27 IMPRESSION: No acute defect. Chest X-Ray 12/19/16 02:49 IMPRESSION: NO ACUTE RADIOGRAPHIC FINDING IN THE CHEST. Limitation. Chest/Abdomen CTA 12/19/16 03:19 IMPRESSION: No acute cardiopulmonary findings. NO PULMONARY EMBOLI. Qualifiers PATEINT BEING DISCHARGED WITH ANY OF THE FOLLOWING DIAGNOSIS?: No Plan Time Spent: Less than 30 Minutes
== END 2016-12-19 17:58 | disposition home or self-care (01) ==
LOC: ER 01:17 → EH 05:04 → INTOOBSV 05:04 → 4N 07:20
PROVIDERS: ADMIT Internal Medicine; ATTEND Internal Medicine
PROC: 3E0F7GC Introduction of Other Therapeutic Substance into Respiratory Tract, Via Natural or Artificial Opening (ICD-10-PCS; principal; 2016-12-19)
PROC: 2W3RX1Z Immobilization of Left Lower Leg using Splint (ICD-10-PCS; 2016-12-19)
DX: I95.9 Hypotension, unspecified (principal); R55 Syncope and collapse; S92.322A Displaced fracture of second metatarsal bone, left foot, initial encounter for closed fracture; S92.332A Displaced fracture of third metatarsal bone, left foot, initial encounter for closed fracture; S92.342A Displaced fracture of fourth metatarsal bone, left foot, initial encounter for closed fracture; W19.XXXA Unspecified fall, initial encounter; Y92.002 Bathroom of unspecified non-institutional (private) residence as the place of occurrence of the external cause; F10.229 Alcohol dependence with intoxication, unspecified; J44.1 Chronic obstructive pulmonary disease with (acute) exacerbation; F12.10 Cannabis abuse, uncomplicated; F11.10 Opioid abuse, uncomplicated; N17.9 Acute kidney failure, unspecified; I10 Essential (primary) hypertension; G25.2 Other specified forms of tremor; R41.3 Other amnesia; F17.200 Nicotine dependence, unspecified, uncomplicated; Z79.899 Other long term (current) drug therapy; Z90.49 Acquired absence of other specified parts of digestive tract; Z82.49 Family history of ischemic heart disease and other diseases of the circulatory system; Z79.52 Long term (current) use of systemic steroids
CPT/HCPCS: 93005; 99285; 96361; 96374; 96375; 36415; 82553; 80307 ×2; 82550; 83735; 85025; 85610; 80048; 80053; 81001; 84484; 73610; 71010; 73630; 72170; 70450; 71275; 72125; 93010; 94640; 29515; G0378 ×2; J3490; J2310; J2060; J3475; J7512; J3411; J7030; J7620

== ENCOUNTER 2017-11-19 15:33 | Emergency (ER) | payer MEDICAID ==
[2017-11-19] MEDS ORDERED: ACETAMINOPHEN 325 MG TABLET PO ONE (15:57)
--- NOTE | 2017-11-19 15:59 | ER Document Report ---
ED Medical Screen (RME) - General Chief Complaint: Back Pain Stated Complaint: BACK PAIN Time Seen by Provider: 11/19/17 15:56 Notes: RAPID MEDICAL EVALUATION DISCLOSURE I have seen this patient as part of a Rapid Medical Evaluation and, if applicable, placed any initially appropriate orders. The patient will be seen and fully evaluated, including a full history and physical exam, by a provider ( in Main ED or Fast Track) when a room becomes available. 62-year-old male PMH chronic back pain here with complaints of lower back pain that acutely flared up this morning when he stood up from the couch. He has pain that is worse with movement. Pain is improved with minimizing movement. He has not taken any pain medicine for the symptoms however he has medicated himself with 3 shots and other types of alcohol. He has chronic numbness and tingling in his legs and is unchanged at this time. The patient is belligerent and appears intoxicated and I am unable to obtain an accurate history or review of systems from him for this reason. TRAVEL OUTSIDE OF THE [place] IN LAST 30 DAYS: No - Related Data Allergies/Adverse Reactions: iodine [Iodine] Allergy (Verified 12/19/16 02:18) Penicillins Allergy (Verified 12/19/16 02:18) Past Medical History - Social History Frequency of alcohol use: Heavy - Past Medical History Cardiac Medical History: Reports: Hx Hypertension Pulmonary Medical History: Reports: Hx COPD Renal/ Medical History: Denies: Hx Peritoneal Dialysis Past Surgical History: Reports: Hx Bowel Surgery - colon resection - Immunizations Hx Diphtheria, Pertussis, Tetanus Vaccination: Yes Physical Exam - Vital signs Vitals: Temp Pulse Resp BP Pulse Ox 98.3 F 82 20 116/76 98 11/19/17 15:36 11/19/17 15:36 11/19/17 15:36 11/19/17 15:36 11/19/17 15:36 Course - Vital Signs Vital signs: Temp Pulse Resp BP Pulse Ox 98.3 F 82 20 116/76 98 11/19/17 15:36 11/19/17 15:36 11/19/17 15:36 11/19/17 15:36 11/19/17 15:36
[2017-11-19] MEDS ORDERED: DEXAMETHASONE SOD PHOS INJ 10 MG/1 ML VIAL IV ONE (16:37)
--- NOTE | 2017-11-19 16:43 | RADIOLOGY REPORT (SQ) ---
EXAM DESCRIPTION: L SPINE WHOLE COMPLETED DATE/TIME: 11/19/2017 4:30 pm REASON FOR STUDY: back pain; eval fx COMPARISON: None. NUMBER OF VIEWS: Five views including obliques. TECHNIQUE: AP, lateral, oblique, and sacral radiographic images acquired of the lumbar spine. LIMITATIONS: None. FINDINGS: MINERALIZATION: Normal. SEGMENTATION: Normal. No transitional anatomy. ALIGNMENT: Normal. VERTEBRAE: Maintained height. No fracture or worrisome bone lesion. DISCS: Multilevel disc space narrowing with osteophytes. POSTERIOR ELEMENTS: Pedicles and facets are intact. No pars defect or posterior arch defects. Facet arthropathy is present. HARDWARE: None in the spine. PARASPINAL SOFT TISSUES: Normal. PELVIS: Intact as visualized. No fractures or worrisome bone lesions. SI joints intact. OTHER: No other significant finding. IMPRESSION: SPONDYLOSIS WITHOUT BONE LESION OR FRACTURE. TECHNICAL DOCUMENTATION: JOB ID: [id number] [employer]- All Rights Reserved Reading location - IP/workstation name: [email or web address]
[2017-11-19 17:09] LABS: ABSOLUTE BASOPHILS # (AUTO) 0.1 10^3/uL (0.0-0.2); ABSOLUTE EOSINOPHILS # (AUTO) 0.1 10^3/uL (0.0-0.6); ABSOLUTE LYMPHOCYTES (AUTO) 3.1 10^3/uL (0.5-4.7); ABSOLUTE MONOCYTES (AUTO) 0.4 10^3/uL (0.1-1.4); ABSOLUTE NEUT (AUTO) 3.1 10^3/uL (1.7-8.2); BASOPHILS % (AUTO) 1.3 % (0-2); HEMATOCRIT 45.2 % (37.9-51.0); HEMOGLOBIN 15.7 g/dL (13.5-17.0); MEAN CORPUSCULAR HEMOGLOBIN 31.9 pg (27.0-33.4); MEAN CORPUSCULAR HGB CONC 34.6 g/dL (32.0-36.0); MEAN CORPUSCULAR VOLUME 92 fl (80-97); MONOCYTES % (AUTO) 6.4 % (3-13); PLATELET COUNT 252 10^3/uL (150-450); RED BLOOD COUNT 4.91 10^6/uL (4.35-5.55); RED CELL DISTRIBUTION WIDTH 13.4 % (11.5-14.0); SEGMENTED NEUTROPHILS % (AUTO) 45.3 % (42-78); TOTAL CELLS COUNTED % (AUTO) 100 %; WHITE BLOOD COUNT 6.9 10^3/uL (4.0-10.5)
[2017-11-19 17:26] LABS: ALANINE AMINOTRANSFERASE 42 U/L (21-72); ALBUMIN 4.4 g/dL (3.5-5.0); ALKALINE PHOSPHATASE 86 U/L (38-126); ANION GAP 15 (5-19); ASPARTATE AMINO TRANSFERASE 31 U/L (17-59); BILIRUBIN,DIRECT 0.2 mg/dL (0.0-0.4); BILIRUBIN,TOTAL 0.2 mg/dL (0.2-1.3); BLOOD UREA NITROGEN 18 mg/dL (7-20); CARBON DIOXIDE 26 mmol/L (22-30); CHLORIDE 101 mmol/L (98-107); GLUCOSE 98 mg/dL (75-110); POTASSIUM 4.9 mmol/L (3.6-5.0); SODIUM 141.8 mmol/L (137-145); TOTAL PROTEIN 6.8 g/dL (6.3-8.2)
[2017-11-19 17:36] LABS: ALCOHOL 334 mg/dL (NONE DETECTED)
--- NOTE | 2017-11-19 19:40 | RADIOLOGY REPORT (SQ) ---
EXAM DESCRIPTION: MRI LUMBAR SPINE WITHOUT COMPLETED DATE/TIME: 11/19/2017 7:13 pm REASON FOR STUDY: low back pain, rad down right leg COMPARISON: None. TECHNIQUE: Sagittal and Axial imaging includes T1, T2, STIR and gradient echo sequences. Coronal T2/ HASTE imaging. LIMITATIONS: None. FINDINGS: No evidence for fracture. No focal disc protrusion or high-grade stenosis. Moderate dege nerative disc disease at the L5-S1 level with approximately 50% disc height loss and mild -moderate n eural foraminal narrowing on the right and mild on the left. Mild disc desiccation at the L4-5 level . Mild-moderate facet arthrosis at the L3 through S1 levels. Conus medullaris is normally located a t the L1 level. , visualize spinal cord shows normal signal. Bone marrow signal is within normal li mits with small hemangiomas noted at. No epidural fluid collection. Retroperitoneum is unremarkable . OTHER: No other significant findings. IMPRESSION: No evidence for fracture. No focal disc protrusion or high-grade stenosis. TECHNICAL DOCUMENTATION: JOB ID: [id number] 2010 [employer]- All Rights Reserved Reading location - IP/workstation name: [email or web address]
--- NOTE | 2017-11-19 19:50 | ER Document Report ---
ED General - General Chief Complaint: Back Pain Stated Complaint: BACK PAIN Time Seen by Provider: 11/19/17 15:56 Mode of Arrival: Medic Information source: Patient Notes: This is a 62-year-old man with a history of chronic back pain and alcohol abuse who presents to the emergency room after his back gave out of him. Patient states he was getting up out of the chair and suffered acute low back pain and actually fell to the floor. He denies any urinary retention. He denies any urinary incontinence. His surgical history includes multiple rectal surgeries for cysts and has chronic pain to the rectal area. TRAVEL OUTSIDE OF THE [place] IN LAST 30 DAYS: No - HPI Onset: Just prior to arrival Onset/Duration: Sudden Quality of pain: Dull Severity: Moderate Pain Level: 3 Associated symptoms: denies: Chest pain, Fever, Shortness of breath Exacerbated by: Movement Relieved by: Remaining still Similar symptoms previously: Yes Recently seen / treated by doctor: No - Related Data Allergies/Adverse Reactions: iodine [Iodine] Allergy (Verified 12/19/16 02:18) Penicillins Allergy (Verified 12/19/16 02:18) Past Medical History - General Information source: Patient - Social History Smoking Status: Unknown if Ever Smoked Cigarette use (# per day): Yes - 1 pack per day Chew tobacco use (# tins/day): No Smoking Education Provided: No Frequency of alcohol use: Heavy Drug Abuse: None Lives with: Spouse/Significant other Family History: Hypertension. denies: Malignancy Patient has suicidal ideation: No Patient has homicidal ideation: No - Past Medical History Cardiac Medical History: Reports: Hx Hypertension Pulmonary Medical History: Reports: Hx COPD Renal/ Medical History: Denies: Hx Peritoneal Dialysis Past Surgical History: Reports: Hx Bowel Surgery - colon resection - Immunizations Hx Diphtheria, Pertussis, Tetanus Vaccination: Yes Review of Systems - Review of Systems Constitutional: denies: Chills, Fever EENT: No symptoms reported Cardiovascular: No symptoms reported Respiratory: No symptoms reported Gastrointestinal: No symptoms reported Genitourinary: No symptoms reported Male Genitourinary: No symptoms reported Musculoskeletal: See HPI Skin: No symptoms reported Hematologic/Lymphatic: See HPI Neurological/Psychological: No symptoms reported Physical Exam - Vital signs Vitals: Temp Pulse Resp BP Pulse Ox 98.3 F 82 20 116/76 98 11/19/17 15:36 11/19/17 15:36 11/19/17 15:36 11/19/17 15:36 11/19/17 15:36 Notes: Physical exam: GENERAL: 62-year-old man, complaining of low back pain, alcohol on breath HEAD: Atraumatic, normocephalic. EYES: Pupils equal round and reactive to light, extraocular movements intact, sclera anicteric, conjunctiva are normal. ENT: TMs normal, nares patent, oropharynx clear without exudates. Moist mucous membranes. NECK: Normal range of motion, supple without obvious mass or JVD. LUNGS: Breath sounds clear to auscultation bilaterally and equal. No wheezes rales or rhonchi. HEART: Regular rate and rhythm without murmurs, rubs or gallops. ABDOMEN: Soft, normoactive bowel sounds. No tenderness to palpation. No guarding, no rebound. No masses appreciated. Back: Patient has tenderness to the lower lumbar area. No changes over the skin. Rectal: Patient does have perirectal sensation. He does have tenderness to the area which is chronic given his history of multiple surgeries. He does have rectal tone. Inner thighs: He does have sensation to the saddle area EXTREMITIES: Normal range of motion, no pitting or edema. No clubbing or cyanosis. NEUROLOGICAL: Cranial nerves II through XII grossly intact. Normal speech, moving all extremities. PSYCH: Normal mood, normal affect. SKIN: Warm, Dry, normal turgor, no rashes or lesions noted. Course - Re-evaluation Re-evalutation: 11/19/17 19:53 Note: I am hesitant to give this patient narcotics or Neurontin given his alcohol abuse. I did start some steroids and will give him a short course of steroids. I will refer him to a pain clinic - Vital Signs Vital signs: Temp Pulse Resp BP Pulse Ox 98.3 F 114 H 16 139/91 H 95 11/19/17 15:36 11/19/17 19:57 11/19/17 19:57 11/19/17 19:57 11/19/17 19:57 - Laboratory Result Diagrams: 11/19/17 16:55 11/19/17 16:55 Laboratory results interpreted by me: 11/19/17 16:55 Est GFR (Non-Af Amer) 59 L Serum Alcohol 334 H* - Diagnostic Test Radiology reviewed: Image reviewed, Reports reviewed - Lumbar MRI shows significant arthritis to the lower back without any cord impingement. Discharge - Discharge Clinical Impression: Acute on chronic back pain Condition: Stable Disposition: HOME, SELF-CARE Additional Instructions: As we discussed, the MRI showed a lot of arthritis but did not show any cord impingement necessitating surgery. At this point, the best method for treatment would be going to a pain clinic. I put the number of the pain clinic affiliated with this hospital. I also wrote for pain medicine to go home: Take the Medrol Dosepak as prescribed Please decrease the alcohol intake while taking this medicine (a combination can irritate your stomach). Follow-up also with a primary care doctor. Thank you [facility] choosing [facility] care. The examination and treatment you have received in the Emergency Department today has been rendered on an emergency basis only and is not intended to be a substitute for complete medical care. You should contact your doctor as it is important that she/he examine you for any new or remaining problems. If given a copy of any lab tests or radiology reports, please bring them with you when you see your physician. Primary Care Doctor's affiliated with [facility]: Dr. Soto Bang [address], [place] [address] [phone] Dr Zayas Address: [address] [place] [address] [place] [address] Dr Hopkins Address: [address] [place] [address] , [place] [address] If you don't have insurance: follow-up at the [facility] which is a free clinic. [address], [place] [address] [phone] Prescriptions: Methylprednisolone [Medrol 4 mg Dosepack 21 Tab/Pack] 4 mg PO ASDIR PRN #21 tab.[id number].[email or web address] PRN Reason: Referrals: JORDAN ELLIOTT MD [Primary Care Provider] - Follow up as needed DANITZA NELSON MD [ACTIVE STAFF] - Follow up in 1 week
[2017-11-19 19:59] VITALS: BP 139/91
== END 2017-11-19 20:17 | disposition home or self-care (01) ==
LOC: ER 15:33
DX: M54.9 Dorsalgia, unspecified (principal); G89.29 Other chronic pain; M54.5 Low back pain; F10.10 Alcohol abuse, uncomplicated; I10 Essential (primary) hypertension; J44.9 Chronic obstructive pulmonary disease, unspecified
CPT/HCPCS: 99284; 96374; 36415; 80307; 85025; 80053; 72148; 72110; J1100

== ENCOUNTER 2018-10-21 10:41 | Emergency (ER) | payer MEDICAID ==
[2018-10-21] MEDS ORDERED: OXYCODONE-ACETAMINOPHEN 5-325 MG TABLET PO ONE (11:06)
--- NOTE | 2018-10-21 11:09 | ER Document Report ---
ED Cardiac - General Chief Complaint: Chest Pain Stated Complaint: FALL/LEFT SIDE CHEST PAIN Time Seen by Provider: 10/21/18 10:56 Primary Care Provider: JORDAN ELLIOTT MD [Primary Care Provider] - Follow up in 3-5 days TRAVEL OUTSIDE OF THE [place] IN LAST 30 DAYS: No - HPI Notes: Patient is a 63-year-old male that presents to the emergency department for chief complaint of chest pain. Patient reports sharp left-sided chest pain since a fall 6 days ago. He states he was walking in his living room and tripped over the rug falling forward onto a table. He hit his left anterior chest wall on the corner of a table and then fell to the ground. He states he may have hit his head but he is not sure. He denies any headache, vision changes, numbness, weakness, nausea or vomiting since the fall. He states the chest pain has been constant but after coughing hard yesterday it has become more severe. He states he felt a pop while coughing. He denies any shortness of breath but states it is painful to take a deep breath in. He does still smoke and has a history of COPD. Past Medical History: COPD, hypertension Past Surgical History: Negative Social History: Daily tobacco, denies drug and alcohol use Family History: Reviewed and noncontributory for presenting illness Allergies: Reviewed, see documented allergy list. REVIEW OF SYSTEMS: CONSTITUTIONAL : No fever No chills No diaphoresis No recent illness EENT: No vision changes No congestion No sore throat CARDIOVASCULAR: chest pain No palpitations RESPIRATORY: No shortness of breath cough difficulty breathing GASTROINTESTINAL: No abdominal pain No nausea No vomiting No diarrhea GENITOURINARY: No dysuria No hematuria No difficulty urinating MUSCULOSKELETAL: No back pain No leg pain No arm pain SKIN: No rashes No lesions LYMPHATIC: No swollen, enlarged glands. NEUROLOGICAL: No lightheadedness No headache No weakness No paresthesias PSYCHIATRIC: No anxiety No depression PHYSICAL EXAMINATION: Vital signs reviewed, nursing noted reviewed. GENERAL: Well-appearing, well-nourished and in no acute distress. HEAD: Atraumatic, normocephalic. EYES: Eyes appear normal, extraocular movements intact, sclera anicteric, conjunctiva are normal. ENT: nares patent, oropharynx clear without exudates. Moist mucous membranes. NECK: Normal range of motion, supple without lymphadenopathy LUNGS: Chest wall tenderness over left rib 4 through 7, no flail segment, no crepitus or deformity. Breath sounds diminished to auscultation bilaterally and equal. No wheezes rales or rhonchi. HEART: Regular rate and rhythm without murmurs ABDOMEN: Soft, nontender, normoactive bowel sounds. No rebound, guarding, or rigidity. No masses appreciated. EXTREMITIES: Nontender, good range of motion, no pitting or edema. NEUROLOGICAL: No focal neurological deficits. Moves all extremities spontaneously Motor and sensory grossly intact on exam. PSYCH: Normal mood, normal affect. SKIN: Warm, Dry, normal turgor, no rashes or lesions noted on exposed skin - Related Data Allergies/Adverse Reactions: iodine [Iodine] Allergy (Verified 12/19/16 02:18) Penicillins Allergy (Verified 12/19/16 02:18) Past Medical History - Social History Smoking Status: Current Every Day Smoker Frequency of alcohol use: Heavy Drug Abuse: Marijuana Family History: Hypertension. denies: Malignancy Patient has suicidal ideation: No Patient has homicidal ideation: No - Past Medical History Cardiac Medical History: Reports: Hx Hypertension Pulmonary Medical History: Reports: Hx COPD Renal/ Medical History: Denies: Hx Peritoneal Dialysis Past Surgical History: Reports: Hx Bowel Surgery - colon resection - Immunizations Hx Diphtheria, Pertussis, Tetanus Vaccination: Yes Physical Exam - Vital signs Vitals: Temp Pulse Resp BP Pulse Ox 98.4 F 79 18 119/103 H 99 10/21/18 10:43 10/21/18 10:43 10/21/18 10:43 10/21/18 10:43 10/21/18 10:43 Course - Re-evaluation Re-evalutation: 10/21/18 11:08 Vitals reviewed. Nursing notes reviewed. Patient does have tenderness to palpation of left ribs. Bedside ultrasound shows no obvious sign of pneumothorax. Patient was given Percocet for pain. His EKG shows no acute ischemia. 10/21/18 14:24 Patient's lab work is unremarkable. X-ray shows old rib fractures on the left with no acute fracture or pneumothorax. Patient has focal tenderness over his left rib cage and did get significant improvement after Percocet. I do not suspect ACS as a cause of his pain since it is focal and occurred after a trauma. Patient was given incentive spirometer and will follow with his PCP for close outpatient reevaluation. He was counseled on return precautions and verbalized understanding. Laboratory 10/21/18 10/21/18 10/21/18 12:50 12:50 12:50 WBC 7.3 RBC 4.63 Hgb 14.8 Hct 43.3 MCV 94 MCH 31.9 MCHC 34.2 RDW 13.5 Plt Count 167 Seg Neutrophils % 63.1 Lymphocytes % 26.1 Monocytes % 8.9 Eosinophils % 1.1 Basophils % 0.8 Absolute Neutrophils 4.6 Absolute Lymphocytes 1.9 Absolute Monocytes 0.7 Absolute Eosinophils 0.1 Absolute Basophils 0.1 Sodium 137.1 Potassium 4.4 Chloride 102 Carbon Dioxide 27 Anion Gap 8 BUN 11 Creatinine 0.88 Est GFR ( Amer) > 60 Est GFR (Non-Af Amer) > 60 Glucose 103 Calcium 9.2 Total Bilirubin 0.6 Direct Bilirubin 0.2 Neonat Total Bilirubin Not Reportable Neonat Direct Bilirubin Not Reportable Neonat Indirect Bili Not Reportable AST 28 ALT 42 Alkaline Phosphatase 90 Troponin I < 0.012 Total Protein 6.8 Albumin 4.0 Chest X-Ray 10/21/18 10:56 IMPRESSION: NO ACUTE RADIOGRAPHIC FINDING IN THE CHEST. Ribs X-Ray 10/21/18 12:24 IMPRESSION: No acute displaced fracture of the left ribs. Multiple callused fracture deformities in keeping with findings of remote prior radiographs dated 2011. - Vital Signs Vital signs: Temp Pulse Resp BP Pulse Ox 98.2 F 79 17 120/104 H 94 10/21/18 14:12 10/21/18 10:43 10/21/18 14:01 10/21/18 14:01 10/21/18 14:01 - Laboratory Result Diagrams: 10/21/18 12:50 10/21/18 12:50 - EKG Interpretation by Me Additional EKG results interpreted by me: 10/21/18 11:08 Interpreted by myself 1050: Normal sinus rhythm, rate 80, normal axis, no ectopy, no ST elevation Procedures - Ultrasound/Bedside Ultrasound/Bedside Time completed: 11:05 Ultrasound: Normal Notes: 10/21/18 11:09 Phased-array probe used over left midclavicular line second intercostal space. Normal lung sliding and normal appearance and M-mode. Negative for pneumothorax Discharge - Discharge Clinical Impression: Contusion of rib on left side Qualifiers: Encounter type: initial encounter Qualified Code(s): S20.212A - Contusion of left front wall of thorax, initial encounter Condition: Stable Disposition: HOME, SELF-CARE Instructions: Chest Wall Pain ([facility]), Rib Contusion ([facility]) Additional Instructions: Please return to the emergency department if you have any worsening, or concern of your symptoms. Please return to the emergency department if you develop chest pain, difficulty breathing, severe abdominal pain, or ongoing vomiting. Please follow-up with your primary care physician in 2-3 days and any other recommended physicians. If prescribed, take all medications as directed. If you have any questions or concerns do not hesitate to return the emergency department for evaluation. Referrals: JORDAN ELLIOTT MD [Primary Care Provider] - Follow up in 3-5 days
--- NOTE | 2018-10-21 12:10 | RADIOLOGY REPORT (SQ) ---
EXAM DESCRIPTION: CHEST SINGLE VIEW COMPLETED DATE/TIME: 10/21/2018 11:44 am REASON FOR STUDY: chest pain COMPARISON: Chest films 10/10/2016, 12/19/2016 CT angio chest 12/19/2016 EXAM PARAMETERS: NUMBER OF VIEWS: One view. TECHNIQUE: Single frontal radiographic view of the chest acquired. RADIATION DOSE: NA LIMITATIONS: Lordotic portable film FINDINGS: LUNGS AND PLEURA: No opacities, masses or pneumothorax. No pleural effusion. MEDIASTINUM AND HILAR STRUCTURES: No masses. Contour normal. HEART AND VASCULAR STRUCTURES: Heart normal in size. Normal vasculature. BONES: No acute findings. Old healed right posterior rib fractures HARDWARE: None in the chest. OTHER: No other significant finding. IMPRESSION: NO ACUTE RADIOGRAPHIC FINDING IN THE CHEST. TECHNICAL DOCUMENTATION: JOB ID: [id number] [employer]- All Rights Reserved Reading location - IP/workstation name: [email or web address]
[2018-10-21 13:05] LABS: ABSOLUTE BASOPHILS # (AUTO) 0.1 10^3/uL (0.0-0.2); ABSOLUTE EOSINOPHILS # (AUTO) 0.1 10^3/uL (0.0-0.6); ABSOLUTE LYMPHOCYTES (AUTO) 1.9 10^3/uL (0.5-4.7); ABSOLUTE MONOCYTES (AUTO) 0.7 10^3/uL (0.1-1.4); ABSOLUTE NEUT (AUTO) 4.6 10^3/uL (1.7-8.2); BASOPHILS % (AUTO) 0.8 % (0-2); EOSINOPHILS % (AUTO) 1.1 % (0-6); HEMATOCRIT 43.3 % (37.9-51.0); HEMOGLOBIN 14.8 g/dL (13.5-17.0); LYMPHOCYTES % (AUTO) 26.1 % (13-45); MEAN CORPUSCULAR HEMOGLOBIN 31.9 pg (27.0-33.4); MEAN CORPUSCULAR HGB CONC 34.2 g/dL (32.0-36.0); MEAN CORPUSCULAR VOLUME 94 fl (80-97); MONOCYTES % (AUTO) 8.9 % (3-13); PLATELET COUNT 167 10^3/uL (150-450); RED BLOOD COUNT 4.63 10^6/uL (4.35-5.55); RED CELL DISTRIBUTION WIDTH 13.5 % (11.5-14.0); SEGMENTED NEUTROPHILS % (AUTO) 63.1 % (42-78); TOTAL CELLS COUNTED % (AUTO) 100 %; WHITE BLOOD COUNT 7.3 10^3/uL (4.0-10.5)
[2018-10-21 13:27] LABS: ALANINE AMINOTRANSFERASE 42 U/L (21-72); ALKALINE PHOSPHATASE 90 U/L (38-126); ANION GAP 8 (5-19); ASPARTATE AMINO TRANSFERASE 28 U/L (17-59); BILIRUBIN,DIRECT 0.2 mg/dL (0.0-0.4); BILIRUBIN,TOTAL 0.6 mg/dL (0.2-1.3); BLOOD UREA NITROGEN 11 mg/dL (7-20); CALCIUM 9.2 mg/dL (8.4-10.2); CARBON DIOXIDE 27 mmol/L (22-30); CHLORIDE 102 mmol/L (98-107); GLUCOSE 103 mg/dL (75-110); POTASSIUM 4.4 mmol/L (3.6-5.0); SODIUM 137.1 mmol/L (137-145); TOTAL PROTEIN 6.8 g/dL (6.3-8.2)
--- NOTE | 2018-10-21 13:27 | RADIOLOGY REPORT (SQ) ---
EXAM DESCRIPTION: RIBS LEFT W/O PA CHEST COMPLETED DATE/TIME: 10/21/2018 1:04 pm REASON FOR STUDY: left rip pain COMPARISON: 10/08/2011 NUMBER OF VIEWS: Four views. TECHNIQUE: Images acquired of the left ribs in the area of focal concern. LIMITATIONS: None. FINDINGS: RIBS: No acute displaced fracture. Multiple callused fracture deformities. No worrisome bone lesions. LUNGS: Limited exam. No obvious pneumothorax. No pleural effusion. OTHER: No other significant finding. IMPRESSION: No acute displaced fracture of the left ribs. Multiple callused fracture deformities in keeping with findings of remote prior radiographs dated 2011. COMMENT: SITE OF TRAUMA/COMPLAINT MARKED/STAMP COMPLETED: YES. TECHNICAL DOCUMENTATION: JOB ID: [id number] [employer]- All Rights Reserved Reading location - IP/workstation name: [email or web address]
[2018-10-21 14:03] VITALS: BP 120/104
--- NOTE | 2018-10-21 14:48 | EKG REPORT ---
SEVERITY:- NORMAL ECG - SINUS RHYTHM : Confirmed by: Geni Thacker MD 21-Oct-2018 14:47:26
== END 2018-10-21 14:14 | disposition home or self-care (01) ==
LOC: ER 10:41
DX: S20.212A Contusion of left front wall of thorax, initial encounter (principal); R07.9 Chest pain, unspecified; R05 Cough; W18.09XA Striking against other object with subsequent fall, initial encounter; Y92.008 Other place in unspecified non-institutional (private) residence as the place of occurrence of the external cause; F17.210 Nicotine dependence, cigarettes, uncomplicated; J44.9 Chronic obstructive pulmonary disease, unspecified; I10 Essential (primary) hypertension
CPT/HCPCS: 36415; 71045; 80053; 84484; 85025; 93005; 93010; 99285

== ENCOUNTER 2018-12-30 21:32 | Emergency (ER) | payer MEDICAID ==
[2018-12-30 22:01] LABS: ABSOLUTE BASOPHILS # (AUTO) 0.1 10^3/uL (0.0-0.2); ABSOLUTE EOSINOPHILS # (AUTO) 0.2 10^3/uL (0.0-0.6); ABSOLUTE LYMPHOCYTES (AUTO) 2.2 10^3/uL (0.5-4.7); ABSOLUTE MONOCYTES (AUTO) 0.9 10^3/uL (0.1-1.4); ABSOLUTE NEUT (AUTO) 5.1 10^3/uL (1.7-8.2); BASOPHILS % (AUTO) 1.2 % (0-2); EOSINOPHILS % (AUTO) 1.9 % (0-6); HEMATOCRIT 38.9 % (37.9-51.0); HEMOGLOBIN 13.4 g/dL (13.5-17.0); LYMPHOCYTES % (AUTO) 25.9 % (13-45); MEAN CORPUSCULAR HEMOGLOBIN 31.8 pg (27.0-33.4); MEAN CORPUSCULAR HGB CONC 34.4 g/dL (32.0-36.0); MEAN CORPUSCULAR VOLUME 92 fl (80-97); MONOCYTES % (AUTO) 10.4 % (3-13); PLATELET COUNT 217 10^3/uL (150-450); RED BLOOD COUNT 4.21 10^6/uL (4.35-5.55); RED CELL DISTRIBUTION WIDTH 13.6 % (11.5-14.0); SEGMENTED NEUTROPHILS % (AUTO) 60.6 % (42-78); TOTAL CELLS COUNTED % (AUTO) 100 %; WHITE BLOOD COUNT 8.4 10^3/uL (4.0-10.5)
[2018-12-30 22:23] LABS: ALANINE AMINOTRANSFERASE 33 U/L (21-72); ALBUMIN 4.1 g/dL (3.5-5.0); ALCOHOL 256 mg/dL (NONE DETECTED); ALKALINE PHOSPHATASE 98 U/L (38-126); ANION GAP 15 (5-19); ASPARTATE AMINO TRANSFERASE 27 U/L (17-59); BILIRUBIN,DIRECT 0.3 mg/dL (0.0-0.4); BILIRUBIN,TOTAL 0.4 mg/dL (0.2-1.3); BLOOD UREA NITROGEN 13 mg/dL (7-20); CALCIUM 8.7 mg/dL (8.4-10.2); CARBON DIOXIDE 23 mmol/L (22-30); CHLORIDE 94 mmol/L (98-107); GLUCOSE 107 mg/dL (75-110); POTASSIUM 4.4 mmol/L (3.6-5.0); SODIUM 131.6 mmol/L (137-145); TOTAL PROTEIN 6.9 g/dL (6.3-8.2)
[2018-12-30 22:24] LABS: ACETAMINOPHEN < 10 ug/mL (10-30); SALICYLATE < 1.0 mg/dL (2.0-20.0)
--- NOTE | 2018-12-30 23:00 | ER Document Report ---
Addendum entered and electronically signed by SURINDER SCHULTZ MD 12/31/18 10:33: Discharge - Discharge Clinical Impression: Tobacco abuse, Polysubstance abuse, Alcohol abuse Condition: Stable Disposition: HOME, SELF-CARE Additional Instructions: You have been evaluated by medical and behavioral health teams and have been deemed appropriate for discharge. You have been provided resources to continue assisting you with detox and substance abuse treatment including mobile crisis contact information. ACUTE ALCOHOL INTOXICATION and ALCOHOL ABUSE: Your evaluation revealed very high levels of alcohol. You can from drinking a large amount of alcohol rapidly! Further, there's the risk of falls, traffic accidents, and fights. A high portion (about 50 percent) of the serious injuries seen in hospital emergency rooms are caused by alcohol. Alcohol overdosage is usually due to an underlying emotional or psychiatric problem. You may benefit from counselling. If "binge" drinking is an ongoing problem for you, or if you drink ANY AMOUNT of alcohol EVERY day, you most likely have a tendency to alcoholism. You should avoid alcohol totally. We can refer you for treatment. Persons with alc ohol problems are often also prone to other addictions -- you should discuss any use of medications or drugs with the doctor. You should be watched at home for the next several hours by someone who has not been drinking. Get extra fluids for the next 24 hours. Call the doctor if there is repeated vomiting, increasing headache, decreasing level of alertness, or any other worsening. CHRONIC ALCOHOLISM and ALCOHOL ABUSE: Your evaluation reveals evidence of chronic alcoholism, an addiction to alcohol. The tendency to alcoholism may be inherited. Chronic use of alcohol weakens muscles, causes fatty deposits in the liver, damages the stomach, makes you more prone to infections, and can cause defects in unborn children. In the long run, brain atrophy and cirrhosis of the liver result. You are also at greater risk for certain types of cancer, such as cancer of the mouth, throat, stomach, and liver. Counselling services are available to help you. In-hospital treatment programs often help. Support groups such as Alcoholics Anonymous can be very useful in beating this addiction. Your physician can make a referral for you. As alcoholics often are prone to other addictions, you should discuss your use of any other medications with the doctor. ALCOHOL WITHDRAWAL: Your symptoms are caused by alcohol withdrawal. After a period of frequent drinking, the brain and body are changed by the alcohol. When you quit or reduce your drinking, the nervous system becomes unstable. Withdrawal symptoms can start a few hours after your last drink, but sometimes don't begin until a couple of days later. Symptoms can include shakiness, sweating, insomnia, nausea, vomiting, fearfulness, hallucinations, and seizures. In addition to the acute effects of alcohol withdrawal, we often have to deal with the medical effects of alcoholism. These problems often include dehydration, stomach irritation, intestinal bleeding, low blood sugar, liver disease, and pancreas inflammation. Treatment for alcohol withdrawal includes mild sedatives, vitamins, and fluids. You need to be with someone who can help if symptoms become severe. Many patients can withdraw at home. Admission to the hospital or a detox facility may be necessary if withdrawal symptoms are severe and uncontrollable. Abstaining from alcohol is the only effective long-term treatment. If you start drinking again, you will not be able to control yourself after the first drink. Treatment programs are available. In addition, many alcoholics benefit from Alcoholics Anonymous or other support groups available through your counselor or jewish lead medical technologist. AL-ANON and ALA-TEEN are support groups for friends and family members of an alcoholic. Go to the emergency room if you develop persistent vomiting, severe abdominal pain, fever, shortness of breath, hallucinations, uncontrollable tremors, or seizures. FOLLOW-UP CARE: If you have been referred to a physician for follow-up care, call the physicians office for an appointment as you were instructed or within the next two days. If you experience worsening or a significant change in your symptoms, notify the physician immediately or return to the Emergency Department at any time for re-evaluation. Doctor's Note Notes: 12/31/18 10:31 Rounds: Chart reviewed and patient interviewed. Patient is being evaluated and treated for substance abuse, especially alcohol abuse. Vital signs of all been normal except for slightly low blood pressure earlier in the morning, but it is normal now. Lab studies were normal except for his elevated alcohol level. Patient is up and ambulatory around the department. Patient appears to be medically stable for transfer or discharge. Zak Schultz MD Addendum entered and electronically signed by JACKELINE TORRES LCSWA 12/31/18 10:21: Discharge - Discharge Clinical Impression: Tobacco abuse, Polysubstance abuse, Alcohol abuse Condition: Stable Disposition: HOME, SELF-CARE Additional Instructions: You have been evaluated by medical and behavioral health teams and have been deemed appropriate for discharge. You have been provided resources to continue assisting you with detox and substance abuse treatment including mobile crisis contact information. ACUTE ALCOHOL INTOXICATION and ALCOHOL ABUSE: Your evaluation revealed very high levels of alcohol. You can from d rinking a large amount of alcohol rapidly! Further, there's the risk of falls, traffic accidents, and fights. A high portion (about 50 percent) of the serious injuries seen in hospital emergency rooms are caused by alcohol. Alcohol overdosage is usually due to an underlying emotional or psychiatric problem. You may benefit from counselling. If "binge" drinking is an ongoing problem for you, or if you drink ANY AMOUNT of alcohol EVERY day, you most likely have a tendency to alcoholism. You should avoid alcohol totally. We can refer you for treatment. Persons with alcohol problems are often also prone to other addictions -- you should discuss any use of medications or drugs with the doctor. You should be watched at home for the next several hours by someone who has not been drinking. Get extra fluids for the next 24 hours. Call the doctor if there is repeated vomiting, increasing headache, decreasing level of alertness, or any other worsening. CHRONIC ALCOHOLISM and ALCOHOL ABUSE: Your evaluation reveals evidence of chronic alcoholism, an addiction to alcohol. The tendency to alcoholism may be inherited. Chronic use of alcohol weakens muscles, causes fatty deposits in the liver, damages the stomach, makes you more prone to infections, and can cause defects in unborn children. In the long run, brain atrophy and cirrhosis of the liver result. You are also at greater risk for certain types of cancer, such as cancer of the mouth, throat, stomach, and liver. Counselling services are available to help you. In-hospital treatment programs often help. Support groups such as Alcoholics Anonymous can be very useful in beating this addiction. Your physician can make a referral for you. As alcoholics often are prone to other addictions, you should discuss your use of any other medications with the doctor. ALCOHOL WITHDRAWAL: Your symptoms are caused by alcohol withdrawal. After a period of frequent drinking, the brain and body are changed by the alcohol. When you quit or reduce your drinking, the nervous system becomes unstable. Withdrawal symptoms can start a few hours after your last drink, but sometimes don't begin until a couple of days later. Symptoms can include shakiness, sweating, insomnia, nausea, vomiting, fearfulness, hallucinations, and seizures. In addition to the acute effects of alcohol withdrawal, we often have to deal with the medical effects of alcoholism. These problems often include dehydration, stomach irritation, intestinal bleeding, low blood sugar, liver disease, and pancreas inflammation. Treatment for alcohol withdrawal includes mild sedatives, vitamins, and fluids. You need to be with someone who can help if symptoms become severe. Many patients can withdraw at home. Admission to the hospital or a detox facility may be necessary if withdrawal symptoms are severe and uncontrollable. Abstaining from alcohol is the only effective long-term treatment. If you start drinking again, you will not be able to control yourself after the first drink. Treatment programs are available. In addition, many alcoholics benefit fr om Alcoholics Anonymous or other support groups available through your counselor or jewish lead medical technologist. AL-ANON and ROSENDO-TEEN are support groups for friends and family members of an alcoholic. Go to the emergency room if you develop persistent vomiting, severe abdominal pain, fever, shortness of breath, hallucinations, uncontrollable tremors, or seizures. FOLLOW-UP CARE: If you have been referred to a physician for follow-up care, call the physicians office for an appointment as you were instructed or within the next two days. If you experience worsening or a significant change in your symptoms, notify the physician immediately or return to the Emergency Department at any time for re-evaluation. Original Note: ED General - General Chief Complaint: ETOH Abuse Stated Complaint: ETOH Time Seen by Provider: 12/30/18 22:09 TRAVEL OUTSIDE OF THE [place] IN LAST 30 DAYS: No - HPI Notes: Patient is a 63-year-old male who presents to the emergency department for evaluation, seeking out counseling and help for his alcohol and drug addiction. Patient states that he drinks a half a pint of liquor and drinks 8 beers daily. He states he is done this for years. He also admits to chewing Vicodin daily. He states he does obtain these illegally. I asked him how often he does this, he states "whenever I can get the money together." Denies any suicidal or homi cidal ideation. No visual or auditory hallucination. He repeatedly tells me he is here because "my says I have to." - Related Data Allergies/Adverse Reactions: iodine [Iodine] Allergy (Verified 12/19/16 02:18) Penicillins Allergy (Verified 12/19/16 02:18) Past Medical History - Social History Smoking Status: Current Every Day Smoker Chew tobacco use (# tins/day): No Frequency of alcohol use: Heavy Drug Abuse: Prescription drugs Family History: Hypertension. denies: Malignancy Patient has suicidal ideation: No Patient has homicidal ideation: No - Past Medical History Cardiac Medical History: Reports: Hx Hypertension Pulmonary Medical History: Reports: Hx COPD Renal/ Medical History: Denies: Hx Peritoneal Dialysis Past Surgical History: Reports: Hx Bowel Surgery - colon resection - Immunizations Hx Diphtheria, Pertussis, Tetanus Vaccination: Yes Physical Exam - Vital signs Vitals: Resp Pulse Ox 19 96 12/30/18 21:55 12/30/18 21:55 Course - Re-evaluation Re-evalutation: 12/31/18 04:16 Patient presents emergency department for evaluation of substance abuse and alcohol abuse. He states he wants psychiatric consultation and help. Denies any suicidal or homicidal ideations at this time. Laboratory investigations, EKG were obtained as per protocol. Labs did reveal alcohol intoxication and very mild hyponatremia, not uncommon in an alcoholic. His drug screen was positive for marijuana, not for opiates. Patient's blood alcohol should be below 100 between 4 and 5 AM. At that point he will be medically cleared for psychiatric consultation. 12/31/18 04:17 - Vital Signs Vital signs: Temp Pulse Resp BP Pulse Ox 97.9 F 14 88/57 L 95 12/30/18 22:01 12/31/18 03:00 12/31/18 02:01 12/31/18 03:00 - Laboratory Result Diagrams: 12/30/18 21:50 12/30/18 21:50 Laboratory results interpreted by me: 12/30/18 12/30/18 21:50 21:50 RBC 4.21 L Hgb 13.4 L Sodium 131.6 L Chloride 94 L Salicylates < 1.0 L Acetaminophen < 10 L - EKG Interpretation by Me Additional EKG results interpreted by me: 12/31/18 04:17 Sinus mechanism with a rate of 76 bpm. Normal axis. Incomplete right bundle branch block. No change when compared to prior study. Discharge - Discharge Clinical Impression: Tobacco abuse, Polysubstance abuse, Alcohol abuse Condition: Stable Disposition: PSYCH HOSP/UNIT
[2018-12-31 02:56] LABS: APPEARANCE,URINE CLEAR; BILIRUBIN,URINE NEGATIVE (NEGATIVE); COLOR,URINE YELLOW; GLUCOSE, URINE NEGATIVE (NEGATIVE); KETONES,URINE NEGATIVE (NEGATIVE); LEUKOCYTE ESTERASE,URINE NEGATIVE (NEGATIVE); NITRITE,URINE NEGATIVE (NEGATIVE); PROTEIN,URINE NEGATIVE (NEGATIVE); URINE SPECIFIC GRAVITY 1.006; UROBILINOGEN,URINE NEGATIVE mg/dL (<2.0)
[2018-12-31 03:14] LABS: URINE AMPHETAMINES SCREEN NEGATIVE; URINE BARBITURATES SCREEN NEGATIVE; URINE BENZODIAZEPINES SCREEN NEGATIVE; URINE COCAINE SCREEN NEGATIVE; URINE MARIJUANA (THC) SCREEN UNCONFIRMED POSITIVE; URINE METHADONE SCREEN NEGATIVE; URINE PHENCYCLIDINE SCREEN NEGATIVE
[2018-12-31] MEDS ORDERED: ONDANSETRON HCL INJ/PF 4 MG/2 ML SDV IV ONE (06:17)
--- NOTE | 2018-12-31 07:18 | EKG REPORT ---
SEVERITY:- OTHERWISE NORMAL ECG - SINUS RHYTHM BORDERLINE RIGHT AXIS DEVIATION : Confirmed by: Jai Garner MD 31-Dec-2018 07:18:05
[2018-12-31 10:30] VITALS: BP 130/74
== END 2018-12-31 10:31 | disposition home or self-care (01) ==
LOC: ER 21:32
DX: F10.229 Alcohol dependence with intoxication, unspecified (principal); Y90.8 Blood alcohol level of 240 mg/100 ml or more; F19.10 Other psychoactive substance abuse, uncomplicated; I45.10 Unspecified right bundle-branch block; E87.1 Hypo-osmolality and hyponatremia; F17.200 Nicotine dependence, unspecified, uncomplicated; I95.9 Hypotension, unspecified
CPT/HCPCS: 93005; 99284; 96374; 36415; 80307 ×4; 85025; 80053; 81001; 93010; J2405

== ENCOUNTER 2019-08-18 20:49 | Emergency (ER) | payer OTHER, MEDICAID ==
[2019-08-18 21:44] VITALS: BP 103/73
== END 2019-08-18 22:30 | disposition left against medical advice (07) ==
LOC: ER 20:49
DX: Z53.21 Procedure and treatment not carried out due to patient leaving prior to being seen by health care provider (principal)

== ENCOUNTER 2019-11-17 21:05 | Emergency (ER) | payer MEDICAID, OTHER ==
[2019-11-17 22:21] LABS: ABSOLUTE BASOPHILS # (AUTO) 0.1 10^3/uL (0.0-0.2); ABSOLUTE EOSINOPHILS # (AUTO) 0.2 10^3/uL (0.0-0.6); ABSOLUTE MONOCYTES (AUTO) 0.5 10^3/uL (0.1-1.4); ABSOLUTE NEUT (AUTO) 3.1 10^3/uL (1.7-8.2); HEMOGLOBIN 15.1 g/dL (13.5-17.0); RED BLOOD COUNT 4.55 10^6/uL (4.35-5.55); TOTAL CELLS COUNTED % (AUTO) 100 %; WHITE BLOOD COUNT 6.6 10^3/uL (4.0-10.5)
[2019-11-17 22:27] LABS: ABSOLUTE LYMPHOCYTES (AUTO) 2.8 10^3/uL (0.5-4.7); BASOPHILS % (AUTO) 1.3 % (0-2); EOSINOPHILS % (AUTO) 2.9 % (0-6); HEMATOCRIT 42.2 % (37.9-51.0); LYMPHOCYTES % (AUTO) 41.6 % (13-45); MEAN CORPUSCULAR HEMOGLOBIN 33.2 pg (27.0-33.4); MEAN CORPUSCULAR HGB CONC 35.7 g/dL (32.0-36.0); MEAN CORPUSCULAR VOLUME 93 fl (80-97); MONOCYTES % (AUTO) 7.5 % (3-13); PLATELET COUNT 225 10^3/uL (150-450); RED CELL DISTRIBUTION WIDTH 13.5 % (11.5-14.0); SEGMENTED NEUTROPHILS % (AUTO) 46.7 % (42-78)
--- NOTE | 2019-11-17 22:37 | RADIOLOGY REPORT (SQ) ---
EXAM DESCRIPTION: XR CHEST 2 VIEWS COMPLETED DATE/TME: 11/17/2019 00:00 CLINICAL HISTORY: 64 years, Male, CHEST PAIN COMPARISON: X-ray chest 10/21/2018 NUMBER OF VIEWS: TECHNIQUE: LIMITATIONS: None. FINDINGS: No evidence of acute pulmonary infiltrate or pleural effusion. There is mild scarring/platelike atelectasis at the lung bases. The heart and mediastinum are unremarkable. Pulmonary vascularity appears normal. IMPRESSION: No acute finding. copyright 2010 [employer]- All Rights Reserved
[2019-11-17 22:40] LABS: ALBUMIN 4.5 g/dL (3.5-5.0); ALKALINE PHOSPHATASE 75 U/L (38-126); ANION GAP 12 (5-19); ASPARTATE AMINO TRANSFERASE 26 U/L (17-59); BILIRUBIN,TOTAL 0.4 mg/dL (0.2-1.3); BLOOD UREA NITROGEN 14 mg/dL (7-20); CALCIUM 9.4 mg/dL (8.4-10.2); CARBON DIOXIDE 24 mmol/L (22-30); CHLORIDE 98 mmol/L (98-107); CREATINE KINASE 100 U/L (55-170); GLUCOSE 117 mg/dL (75-110); POTASSIUM 3.9 mmol/L (3.6-5.0); TOTAL PROTEIN 7.1 g/dL (6.3-8.2)
[2019-11-17 22:51] LABS: CREATINE KINASE MB 1.25 ng/mL (<4.55)
[2019-11-17 22:52] LABS: TROPONIN I < 0.012 ng/mL
--- NOTE | 2019-11-18 | EKG REPORT ---
SEVERITY:- ABNORMAL ECG - SINUS RHYTHM NONSPECIFIC T ABNORMALITIES, ANT-LAT LEADS : Confirmed by: Martin Muller 17-Nov-2019 23:59:28
--- NOTE | 2019-11-18 01:17 | ER Document Report ---
ED General - General Chief Complaint: Rib Pain Stated Complaint: RIB PAIN/ETOH Time Seen by Provider: 11/18/19 00:59 Notes: 64-year-old male with alcohol dependency presents to the emergency department after a fall at home earlier today. Patient states that he was walking in his house and try to sidestep around a cat, lost his balance, and fell into the corner of a speaker. Patient landed in the left anterior axillary region and complains of acute tenderness to palpation over the area. Patient fell to the floor then, landed on his elbow, did not strike his head. Patient is not on anticoagulation. Patient did have something to drink today earlier. Patient denies any acute shortness of breath, denies chest pain, denies nausea or v omiting, no other complaints. TRAVEL OUTSIDE OF THE [place] IN LAST 30 DAYS: No - Related Data Allergies/Adverse Reactions: Penicillins Allergy (Verified 11/17/19 21:43) shellfish derived Allergy (Verified 11/18/19 02:11) Home Medications: PROAIR,. CLONAZEPAM. LISINOPRIL Past Medical History - Social History Smoking Status: Current Every Day Smoker Frequency of alcohol use: Heavy Family History: Hypertension. denies: Malignancy Patient has suicidal ideation: No Patient has homicidal ideation: No - Past Medical History Cardiac Medical History: Reports: Hx Hypertension Pulmonary Medical History: Reports: Hx COPD Renal/ Medical History: Denies: Hx Peritoneal Dialysis Past Surgical History: Reports: Hx Bowel Surgery - colon resection - Immunizations Hx Diphtheria, Pertussis, Tetanus Vaccination: Yes Review of Systems - Review of Systems Constitutional: See HPI EENT: No symptoms reported Cardiovascular: See HPI Respiratory: See HPI Gastrointestinal: See HPI Genitourinary: No symptoms reported Male Genitourinary: No symptoms reported Musculoskeletal: See HPI Skin: No symptoms reported Hematologic/Lymphatic: No symptoms reported Neurological/Psychological: No symptoms reported Physical Exam - Vital signs Vitals: Temp Pulse Resp BP Pulse Ox 98.1 F 104 H 18 129/82 H 96 11/17/19 21:11 11/17/19 21:11 11/17/19 21:11 11/17/19 21:11 11/17/19 21:11 - Notes Notes: PHYSICAL EXAMINATION: Reviewed vital signs and charting by RN GENERAL: Alert, interacts well. No acute distress. HEAD: Normocephalic, atraumatic. EYES: Pupils equal and round. Extraocular movements intact. ENT: Oral mucosa moist, tongue midline. NECK: Full range of motion. Trachea midline. LUNGS: Clear to auscultation bilaterally, no wheezes, rales, or rhonchi. No respiratory distress. HEART: Regular rate and rhythm. No murmur ABDOMEN: Small area of ecchymosis in the left upper quadrant with acute tenderness to palpation over the area. Abdomen is soft. No distention. Bowel sounds present EXTREMITIES: Moves all 4 extremities spontaneously. No edema, No cyanosis. PSYCH: Normal affect, normal mood. SKIN: Warm, dry, normal turgor. No rashes or lesions noted. Course - Re-evaluation Re-evalutation: 11/18/19 01:16 Patient is well-appearing in no acute distress. No respiratory distress. Patient does have acute tenderness to palpation in the left upper quadrant. Chest x-ray was completed which does appear to show a fracture of the ninth left rib. After discussing with my attending plan is to move forward with a CT abdomen/pelvis with IV contrast to ensure there was no splenic injury. Patient is not on anticoagulation. Labs are overall within normal limits, no evidence of hepatic dysfunction. 11/18/19 03:00 CT abdomen pelvis did not show any acute pathology, no free air, no splenic injury. Patient with a broken rib and I will give him incentive spirometry. Patient will be instructed to follow-up with his primary doctor. No evidence of flail chest or multiple rib fractures. At this time patient is stable for discharge. - Vital Signs Vital signs: Temp Pulse Resp BP Pulse Ox 97.9 F 104 H 16 116/79 96 11/18/19 01:55 11/17/19 21:11 11/18/19 02:14 11/18/19 01:01 11/18/19 02:14 - Laboratory Result Diagrams: 11/17/19 22:02 11/17/19 22:02 Laboratory results interpreted by me: 11/17/19 22:02 Sodium 134.1 L Glucose 117 H Discharge - Discharge Clinical Impression: Fractured rib Qualifiers: Encounter type: initial encounter Rib fracture type: single rib Fracture type: closed Laterality: left Qualified Code(s): S22.32XA - Fracture of one rib, left side, initial encounter for closed fracture Condition: Good Disposition: HOME, SELF-CARE Additional Instructions: He was seen in the emergency department today for a fall and you sustained a broken rib. The CT of your abdomen did not show any significant pathology and this is all very reassuring. I have given you an incentive spirometry tool and I want you to use it 10 times per hour to help prevent your lungs from collapsing. You can also take ibuprofen 600 mg every 6 hours for pain for 5 days. You can take 650 mg of Tylenol every 4-6 hours as needed for pain. Please return to the emergency department if you develop acute shortness of breath, chest pain, acute weakness, or you have any other concerning symptoms.
[2019-11-18] MEDS ORDERED: HYDROCODONE/ACETAMINOPHEN 5-325 MG TABLET PO ONE (01:41)
--- NOTE | 2019-11-18 02:52 | RADIOLOGY REPORT (SQ) ---
CLINICAL INDICATION: Fall, LUQ pain. CREAT 1.15. . TECHNIQUE: Contrast enhanced spiral axial CT imaging was obtained of the abdomen and pelvis with multiplanar reconstructions. This exam was performed according to our departmental dose-optimization program, which includes automated exposure control, adjustment of the mA and/or kV according to patient size and/or use of iterative reconstruction techniques. Additional delayed phase imaging. COMPARISON: None. CORRELATION: None. FINDINGS: Abdomen: The lung bases demonstrate chronic changes. The heart is of normal size. No evidence of pleural or pericardial fluid. The liver demonstrate an indeterminant low-attenuation focus right lobe of the liver segment series 3 image 24 not seen delayed phase imaging. This measures less than 1 cm. The gallbladder is nondistended without inflammatory change. The pancreas is unremarkable. The spleen is unremarkable. The adrenals are unremarkable. The kidneys appear grossly normal without evidence of urolithiasis or hydronephrosis. There is no evidence of free air. No free fluid. No bulky adenopathy. Abdominal aorta is calcified but nonaneurysmal. Pelvis: The bowel is nonobstructed. The bowel is unopacified with oral contrast. Pelvic contents are unremarkable. The appendix is normal. Thickening of the sigmoid colon Visualized bones demonstrate age-appropriate osteoarthritis. Scoliosis. Old posttraumatic change. IMPRESSION: Mild thickening of the sigmoid colon of unknown chronicity. There is diverticulosis in the area. Presumed chronic diverticulitis. No solid organ injury..
[2019-11-18 03:38] VITALS: BP 119/72
== END 2019-11-18 03:34 | disposition home or self-care (01) ==
LOC: ER 21:05
DX: S22.32XA Fracture of one rib, left side, initial encounter for closed fracture (principal); R07.81 Pleurodynia; W19.XXXA Unspecified fall, initial encounter; Y92.009 Unspecified place in unspecified non-institutional (private) residence as the place of occurrence of the external cause; Z88.0 Allergy status to penicillin; Z88.8 Allergy status to other drugs, medicaments and biological substances; Z79.899 Other long term (current) drug therapy; F17.200 Nicotine dependence, unspecified, uncomplicated; I10 Essential (primary) hypertension; J44.9 Chronic obstructive pulmonary disease, unspecified
CPT/HCPCS: 36415; 71046; 74177; 80053; 82550; 82553; 84484; 85025; 93005; 93010; 99284

== ENCOUNTER 2020-08-21 20:33 | Emergency (ER) | payer MEDICAID ==
[2020-08-21 21:35] LABS: HEMATOCRIT 42.8 % (37.9-51.0); HEMOGLOBIN 14.6 g/dL (13.5-17.0); MEAN CORPUSCULAR HEMOGLOBIN 33.5 pg (27.0-33.4); MEAN CORPUSCULAR VOLUME 99 fl (80-97); RED BLOOD COUNT 4.35 10^6/uL (4.35-5.55); RED CELL DISTRIBUTION WIDTH 13.7 % (11.5-14.0); WHITE BLOOD COUNT 5.7 10^3/uL (4.0-10.5)
[2020-08-21 21:53] LABS: ABSOLUTE LYMPHOCYTES# (MANUAL) 3.4 10^3/uL (0.5-4.7); ABSOLUTE MONOCYTES # (MANUAL) 0.4 10^3/uL (0.1-1.4); BASOPHILS % (MANUAL) 0 % (0-2); EOSINOPHILS % (MANUAL) 4 % (0-6); LYMPHOCYTES % (MANUAL) 59 % (13-45); MONOCYTES % (MANUAL) 7 % (3-13); SEGMENTED NEUTROPHILS % (MAN) 30 % (42-78); TOTAL CELLS COUNTED 100
[2020-08-21 21:54] LABS: ALBUMIN 4.5 g/dL (3.5-5.0); ALCOHOL 283 mg/dL (NONE DETECTED); ALKALINE PHOSPHATASE 96 U/L (38-126); ANION GAP 14 (5-19); ASPARTATE AMINO TRANSFERASE 53 U/L (17-59); BILIRUBIN,DIRECT 0.3 mg/dL (0.0-0.4); BILIRUBIN,TOTAL 0.4 mg/dL (0.2-1.3); BLOOD UREA NITROGEN 12 mg/dL (7-20); CALCIUM 9.3 mg/dL (8.4-10.2); CARBON DIOXIDE 20 mmol/L (22-30); CHLORIDE 103 mmol/L (98-107); GLUCOSE 99 mg/dL (75-110); POTASSIUM 4.5 mmol/L (3.6-5.0); TOTAL PROTEIN 7.3 g/dL (6.3-8.2)
[2020-08-21 21:55] LABS: PLATELET CLUMPS PRESENT; PLATELET COMMENT ADEQUATE; PLATELET COUNT 189 10^3/uL (150-450)
[2020-08-21 22:22] LABS: APPEARANCE,URINE CLEAR; BILIRUBIN,URINE NEGATIVE (NEGATIVE); COLOR,URINE STRAW; GLUCOSE, URINE NEGATIVE (NEGATIVE); KETONES,URINE NEGATIVE (NEGATIVE); LEUKOCYTE ESTERASE,URINE NEGATIVE (NEGATIVE); NITRITE,URINE NEGATIVE (NEGATIVE); PROTEIN,URINE NEGATIVE (NEGATIVE); URINE SPECIFIC GRAVITY 1.005; UROBILINOGEN,URINE NEGATIVE mg/dL (<2.0)
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
[2020-08-22 02:04] LABS: URINE AMPHETAMINES SCREEN NEGATIVE; URINE BARBITURATES SCREEN NEGATIVE; URINE BENZODIAZEPINES SCREEN NEGATIVE; URINE COCAINE SCREEN NEGATIVE; URINE METHADONE SCREEN NEGATIVE; URINE PHENCYCLIDINE SCREEN NEGATIVE
[2020-08-22 02:06] LABS: URINE MARIJUANA (THC) SCREEN UNCONFIRMED POSITIVE
--- NOTE | 2020-08-22 09:25 | EKG REPORT ---
SEVERITY:- OTHERWISE NORMAL ECG - SINUS RHYTHM BORDERLINE RIGHT AXIS DEVIATION : Confirmed by: Bharat [place] MD 22-Aug-2020 09:24:16
[2020-08-22] MEDS ORDERED: NICOTINE 21 MG/24 HR PATCH.TD24 TD ONE (11:00)
--- NOTE | 2020-08-22 11:05 | ER Document Report ---
Doctor's Note Notes: 08/22/20 11:04 Patient is requesting a nicotine patch. Patient evaluated and he states he is feeling better and denies suicidal ideation. He reports smoking 1 pack per day. Nicotine patch 21mg ordered. PHYSICAL EXAMINATION: GENERAL: Well-appearing, well-nourished and in no acute distress. HEAD: Atraumatic, normocephalic. EYES: sclera anicteric, conjunctiva are normal. ENT: Moist mucous membranes. NECK: Normal range of motion LUNGS: Normal work of breathing HEART: 2+ radial pulses bilaterally EXTREMITIES: no pitting or edema. No cyanosis. NEUROLOGICAL: No focal neurological deficits. Moves all extremities spontaneously and on command. PSYCH: Normal mood, normal affect. SKIN: Warm, Dry, normal turgor, no rashes or lesions noted. 08/22/20 14:20 Patient has a bed on hold at [facility] and has been cleared from psychiatric services. Patient is seeking help with Detox and is very willing to go to [facility]. Patient is medically cleared. Repeat alcohol level of 107 this morning at 6AM. Return precautions follow-up instructions given. Patient understands and is in agreement with the plan. Patient will be discharged to go to [facility] at this time.
--- NOTE | 2020-08-22 12:45 | PSYCHOLOGICAL NOTE ---
Psych Note - Psych Note Date seen by psych provider: 08/22/20 Time seen by psych provider: 10:44 Psych Note: Reason for Consult: Suicidal comments, Detox Consent Permissions: [facility] Patient arrived to [facility] ED via EMS for concerns of making passive suicidal comments while intoxicated. Patient denied he has any plan, means or intent and denied current thoughts. He denied any history of engaging in self harm. Patient reports he is nervous about going to detox but would like to have assistance in placement to get sober. He disclosed he is nervous because he is worried about not being able to smoke while at detox. He confirm he would like to try a nicotine patch to see if it helps with cravings; he has never used a patch before. He confirms he would still like to try detox at [facility] and provides consent to coordinate placement (consent signed and placed in patient's chart). Patient is alert and orientated to person, place, time and circumstance. Mood is euthymic with congruent affect. Patient denies current suicidal ideation admits to making suicidal comments while intoxicated. Patient denies homicidal ideation. Delusions are absent behaviors congruent with an intact reality based presentation i.e. organized and linear thought process. Eye contact was well- maintained. Conversational speech is within normal rate, tone and prosody. Intellectual abilities appear to be within the average range. Attention and con centration are good. Insight, judgment, impulse control are fair. Clinical Presentation: passive suicidal comments while intoxicated Substance intoxication (upon initial arrival) with abuse IVC Criteria per [place] GS 122C Dangerous to others Within the relevant past the individual No has inflicted or attempted to inflict or threatened to inflict serious bodily harm on another AND No that there is a reasonable probability that this conduct will be repeated as there is an absence of supervision or structure to prevent. OR No has acted in such a way as to create a substantial risk of serious bodily harm to another AND No that there is a reasonable probability that this conduct will be repeated as there is an absence of supervision or structure to prevent. OR No has engaged in extreme destruction of property AND NO that there is a reasonable probability that this conduct will be repeated as there is an absence of supervision or structure to prevent. Previous episodes of dangerousness to others, when applicable, may be considered when determining reasonable probability of future dangerous conduct. Clear, cogent, and convincing evidence that an individual has committed a homicide in the relevant past is prima facie evidence of dangerousness to others. Dangerous to self Within the relevant past the individual has done any of the following: acted in such a way as to show ALL of the following: No The individual would be unable without care, supervision, and the continued assistance of others not otherwise available, to exercise self- control, judgment, and discretion in the conduct of the individual's daily res ponsibilities and social relations or to satisfy the individual's need for nourishment, personal or medical care, assisted, or self-protection and safety. AND No There is a reasonable probability of the individual suffering serious physical debilitation within the near future unless adequate treatment is given. A showing of behavior that is grossly irrational, of actions that the individual is unable to control, of behavior that is grossly inappropriate to the situation, or of other evidence of severely impaired insight and judgment shall create a prima facie inference that the individual is unable to care for himself or herself. OR Yes has attempted suicide or threatened suicide AND No that there is a reasonable probability of suicide unless adequate treatment is given as there is an absence of supervision or structure to prevent suicide of patient who has made an attempt, serious gesture or threat. Patient made suicidal comments when intoxicated. He denies having a plan or having current thoughts. Patient has no history of self jr. He is requesting assistance with voluntary detox. OR No has mutilated himself or herself or attempted to mutilate himself or herself AND No that there is a reasonable probability of serious self-mutilation unless adequate treatment is given as there is an absence of supervision or structure to prevent. NOTE: Previous episodes of dangerousness to self, when applicable, may be considered when determining reasonable probability of physical debilitation, gabi cide, or self-mutilation. Impression\plan: Patient is cleared from acute psychiatric services. Patient made passive suicidal comments while intoxicated. He denied plan, means or intent and denied current thoughts. He is requesting assistance with voluntary inpatient detox. Dr. Muniz was consulted to care management of this patient; attending physicians in agreement with recommendations and disposition. Case management: Patient signed consent to release form for [facility]; placed in patient's chart. Paperwork is faxed to [facility] for consideration foe voluntary detox placement
[2020-08-22 13:34] VITALS: BP 144/92
== END 2020-08-22 14:13 | disposition home or self-care (01) ==
LOC: ER 20:33
DX: F32.9 Major depressive disorder, single episode, unspecified (principal); R45.851 Suicidal ideations; F41.9 Anxiety disorder, unspecified; T42.4X6A Underdosing of benzodiazepines, initial encounter; Z91.138 Patient's unintentional underdosing of medication regimen for other reason; Z91.14 Patient's other noncompliance with medication regimen; F10.120 Alcohol abuse with intoxication, uncomplicated; F17.200 Nicotine dependence, unspecified, uncomplicated; I10 Essential (primary) hypertension; J44.9 Chronic obstructive pulmonary disease, unspecified; F12.10 Cannabis abuse, uncomplicated; Z88.0 Allergy status to penicillin; Z91.013 Allergy to seafood; Z20.822 Contact with and (suspected) exposure to COVID-19
CPT/HCPCS: 93005; 99284; 36415; 80307 ×2; 85025; 0241U; 80053; 81001; 93010; J3490; C9803